=== PATIENT | male | born 1950 | race Caucasian/White ===

== ENCOUNTER 2020-01-22 23:11 | Inpatient (IN) | payer MEDICARE, OTHER ==
[~2020-01-22] VITALS: Ht 190.5 cm; Wt 90.7 kg
[~2020-01-22 23:11] MED LIST: AMLODIPINE BESY10 MG PO; ASA81 MG PO; ATORVASTATIN CA10 MG PO; GLIPIZIDE5 MG PO; HYDROCHLOROTHIA25 MG PO; IBUPROFEN PO; LISINOPRIL10 MG PO; MELOXICAM7.5 MG PO; METFORMIN HCL500 MG PO; NORCO 10-325 T1 EACH PO; Z SULFAMETHOXAZO PO; Z.0.PENICILLIN V P50 PO; [UNRECOGNIZED DRUG - OTHER] PO
[2020-01-23] MEDS ORDERED: ACETAMINOPHEN 325 MG TAB PO ONE (00:30)
[2020-01-23] MEDS ORDERED: ONDANSETRON HCL INJ 2MG/ML 2ML 2 MG/ML VIAL IV PRN (00:30)
[2020-01-23] MEDS ORDERED: VANCOMYCIN 1GM/NS 250 ML 250 ML IV SCH (00:30)
[2020-01-23] MEDS ORDERED: PIPER-TAZ 3.375 GM 50 ML IV ONE (00:30)
[2020-01-23] MEDS ORDERED: ACETAMINOPHEN 325 MG TAB PO PRN (00:30)
[2020-01-23] MEDS ORDERED: VANCOMYCIN 1GM/NS 250 ML 250 ML IV ONE (00:30)
[2020-01-23] MEDS ORDERED: SODIUM CHLORIDE 0.9% 1000ML 1,000 ML IV ONE (00:30)
--- NOTE | 2020-01-23 00:33 | Emergency Department Note ---
History of Present Illnes History of Present Illness Chief Complaint: Extremity Trauma/Pain History of Present Illness This is a 69 year old male PRESENT WITH C/O INFECTION TO LEFT ANKLE WITH OPEN WOUND, WOUND TIMES ONE MONTH, REDNESS, DRAINAGE STARTED 2 DAYS AGO. Historian: Patient Arrival Mode: Car Onset (how long ago): day(s) (2) Location: LEFT ANKLE Quality: INFECTION Radiation: Reports non-radiation Severity: moderate Onset quality: gradual Duration (how long): day(s) (2) Timing of current episode: constant Progression: worsening Context: Denies recent illness, Denies recent surgery Relieving factors: none Exacerbating factors: none Associated symptoms: Reports denies other symptoms Treatments prior to arrival: none Past Medical/Family History Physician Review I have reviewed the patient's past medical and family history. Any updates have been documented here. Past Medical History Recent Fever: No Clinical Suspicion of Infectio: No New/Unexplained Change in Ment: No Past Medical History: Hypertension, Diabetes Other Medical History: High cholesterol Other Surgery: LEFT ANKLE SURGERY Social History Smoking Cessation: Never Smoker Alcohol Use: None Any Illegal Drug Use: No Family History Family history of heart diseas: No Other family history HTN, DM Other Last Tetanus: UNKNOWN Review of Systems Review of Systems Constitutional: Reports no symptoms EENTM: Reports no symptoms Cardiovascular: Reports no symptoms Respiratory: Reports no symptoms Gastrointestinal: Reports no symptoms Genitourinary: Reports no symptoms Musculoskeletal: Reports no symptoms Integumentary: Reports as per HPI Neurological: Reports no symptoms Psychological: Reports no symptoms Endocrine: Reports no symptoms Hematological/Lymphatic: Reports no symptoms Physical Exam Related Data Allergies: Coded Allergies: No Known Allergies (Unverified , 12/13/16) Triage Vital Signs Vital Signs Date Time Temp Pulse Resp B/P (MAP) Pulse Ox O2 Delivery O2 Flow Rate FiO2 01/23/20 00:13 100.2 86 18 163/75 97 Room Air Vital signs reviewed: Yes Physical Exam CONSTITUTIONAL Constitutional: Present well-developed, Present well-nourished HENT HENT: Present normocephalic, Present atraumatic, Present oropharynx clear/moist, Present nose normal HENT L/R: Present left ext ear normal, Present right ext ear normal EYES Eyes: Reports PERRL, Reports conjunctivae normal NECK Neck: Present ROM normal PULMONARY Pulmonary: Present effort normal, Present breath sounds normal CARDIOVASCULAR Cardiovascular: Present regular rhythm, Present heart sounds normal, Present capillary refill normal, Present normal rate GASTROINTESTINAL Abdominal: Present soft, Present nontender, Present bowel sounds normal GENITOURINARY Genitourinary: Present exam deferred SKIN Skin: Present warm, Present dry MUSCULOSKELETAL PT WITH 4 BY 2 CM WOUND TO LATERAL ASPECT OF LEFT ANKLE WITH DRAINAGE, THERE IS A 15 CM SURROUNDING AREA OF ERYTHEMA AND SWELLING, NEUROLOGICAL Neurological: Present alert, Present oriented x 3, Present no gross motor or sensory deficits PSYCHOLOGICAL Psychological: Present mood/affect normal, Present judgement normal Results Laboratory Laboratory Laboratory Tests Test 01/23/20 01:15 01/23/20 00:24 01/23/20 00:20 Bedside Glucose 208 mg/dL (70-120) White Blood Count 14.53 x10e3/uL (4.8-10.8) Red Blood Count 4.15 x10e6/uL (4.3-5.7) Hemoglobin 12.7 g/dL (14.0-18.0) Hematocrit 38.4 % (38.2-49.6) Mean Corpuscular Volume 92.5 fL (81-99) Mean Corpuscular Hemoglobin 30.6 pg (28-32) Mean Corpuscular Hemoglobin Concent 33.1 g/dL (31-35) Red Cell Distribution Width 13.6 % (11.7-14.4) Platelet Count 204 x10e3/uL (140-360) Neutrophils (%) (Auto) 77.9 % (38.7-80.0) Lymphocytes (%) (Auto) 11.0 % (18.0-39.1) Monocytes (%) (Auto) 9.4 % (4.4-11.3) Eosinophils (%) (Auto) 0.7 % (0.0-6.0) Basophils (%) (Auto) 0.4 % (0.0-1.0) Neutrophils # (Auto) 11.3 (2.1-6.9) Lymphocytes # (Auto) 1.6 (1.0-3.2) Monocytes # (Auto) 1.4 (0.2-0.8) Eosinophils # (Auto) 0.1 (0.0-0.4) Basophils # (Auto) 0.1 (0.0-0.1) Absolute Immature Granulocyte (auto 0.09 x10e3/uL (0-0.1) Sodium Level 133 mmol/L (136-145) Potassium Level 4.0 mmol/L (3.5-5.1) Chloride Level 99 mmol/L (98-107) Carbon Dioxide Level 25 mmol/L (22-29) Anion Gap 13.0 mmol/L (8-16) Blood Urea Nitrogen 27 mg/dL (7-26) Creatinine 2.07 mg/dL (0.72-1.25) Estimat Glomerular Filtration Rate 32 ML/MIN (60-) BUN/Creatinine Ratio 13 (6-25) Glucose Level 212 mg/dL (74-118) Calcium Level 9.7 mg/dL (8.4-10.2) Total Bilirubin 1.2 mg/dL (0.2-1.2) Aspartate Amino Transf (AST/SGOT) 34 IU/L (5-34) Alanine Aminotransferase (ALT/SGPT) 27 IU/L (0-55) Alkaline Phosphatase 78 IU/L (40-150) Total Protein 8.8 g/dL (6.5-8.1) Albumin 3.8 g/dL (3.5-5.0) Globulin 5.0 g/dL (2.3-3.5) Albumin/Globulin Ratio 0.8 (0.8-2.0) Lab results reviewed: Yes Assessment & Plan Medical Decision Making MDM PT WITH INFECTED DIABETIC WOUND TO LEFT ANKLE AND SURROUNDING CELLULITS CBC, CMP, BLOOD CULTURE ORDERED ZOSYN 3.375 GRAMS IV ORDERED VANCOMYCIN 1 GRAM IV ORDERED TYLENOL 650 MG PO ORDERED I SPOKE WITH DR GALDAMEZ ADMIT TO INPATIENT Assessment & Plan Final Impression: (1) Cellulitis of left ankle (2) Wound of left ankle Depart Disposition: ADMITTED Last Vital Signs Date Time Temp Pulse Resp B/P (MAP) Pulse Ox O2 Delivery O2 Flow Rate FiO2 01/23/20 00:13 100.2 86 18 163/75 97 Room Air Home Meds Reported Medications Hydrocodone Bit/Acetaminophen (NORCO 10-325 TABLET) 1 Each Tablet, 1 TAB PO Q6H PRN for PAIN 12/20/16 Meloxicam (MELOXICAM) 7.5 Mg Tablet, 7.5 MG PO DAILY, #30 TAB 12/13/16 Atorvastatin Calcium (ATORVASTATIN CALCIUM) 10 Mg Tablet, 10 MG PO 2100, #30 TAB 6/1/17 Amlodipine Besylate (AMLODIPINE BESYLATE) 10 Mg Tablet, 10 MG PO DAILY, #30 TAB 12/13/16 Hydrochlorothiazide (HYDROCHLOROTHIAZIDE) 25 Mg Tablet, 12.5 MG PO BID, #30 TAB 12/13/16 Lisinopril (LISINOPRIL) 10 Mg Tablet, 40 MG PO BID, #30 TAB 12/13/16 Glipizide (GLIPIZIDE) 5 Mg Tablet, 5 MG PO BID, TAB 12/13/16 Metformin Hcl (METFORMIN HCL) 500 Mg Tablet, 1000 MG PO BID, #60 TAB 12/13/16 Penicillin V Potassium (Penicillin V Potassium) 500 Mg Tablet, 500 MG PO ACHS 10/02/11 Ibuprofen (Ibuprofen) 100 Mg Tablet, 100 MG PO DAILY 10/02/11 Multivitamins (Multivitamins) 1 Each Tab.chew, 1 EACH PO DAILY 10/02/11 Aspirin (Asa) 81 Mg Tab, 81 MG PO DAILY 10/02/11 Medications in the ED Piperacillin Sod/ Tazobactam Sod 50 ml @ 50 mls/hr NOW ONCE IV ; Start 01/23/20 at 00:30; Stop 01/23/20 at 01:29 Vancomycin HCl 250 ml @ 200 mls/hr NOW ONCE IV ; Start 01/23/20 at 00:30; Stop 01/23/20 at 01:44 Acetaminophen 650 mg ONCE ONCE PO ; Start 01/23/20 at 00:30; Stop 01/23/20 at 00:31 MARTIN ZUNIGA MD Jan 23, 2020 00:33
[2020-01-23 01:20] LABS: ALBUMIN 3.8 g/dL (3.5-5.0); ALBUMIN/GLOBULIN RATIO 0.8 (0.8-2.0); CALCIUM 9.7 mg/dL (8.4-10.2); CREATININE, SERUM 2.07 mg/dL (0.72-1.25)
[2020-01-23 01:21] LABS: BASOPHILS # (AUTO) 0.1 (0.0-0.1); BASOPHILS % 0.4 % (0.0-1.0); EOSINOPHILS # (AUTO) 0.1 (0.0-0.4); EOSINOPHILS % 0.7 % (0.0-6.0); HEMATOCRIT 38.4 % (38.2-49.6); HEMOGLOBIN 12.7 g/dL (14.0-18.0); LYMPHOCYTES # (AUTO) 1.6 (1.0-3.2); MEAN CORPUSCULAR HEMOGLOBIN 30.6 pg (28-32); MEAN CORPUSCULAR HGB CONC 33.1 g/dL (31-35); MEAN CORPUSCULAR VOLUME 92.5 fL (81-99); MONOCYTES # (AUTO) 1.4 (0.2-0.8); MONOCYTES % 9.4 % (4.4-11.3); NEUTROPHILS # (AUTO) 11.3 (2.1-6.9); NEUTROPHILS % 77.9 % (38.7-80.0); PLATELET COUNT 204 x10e3/uL (140-360); RED BLOOD COUNT 4.15 x10e6/uL (4.3-5.7); RED CELL DISTRIBUTION WIDTH 13.6 % (11.7-14.4)
[2020-01-23] MEDS: VANCOMYCIN 500MG/NS 0.9% 100ML 100 ML IV SCH ×2 (02:08→12:02)
[2020-01-23] MEDS ORDERED: PIPERACILLIN/TAZO 2.25 GM 50 ML IV SCH (06:00)
[2020-01-23] MEDS ORDERED: PIPER-TAZ 3.375 GM 50 ML IV SCH (06:00)
[2020-01-23] MEDS ORDERED: INSULIN REGULAR, HUMAN 100 UNIT/1 ML 3ML VIAL SQ SCH (07:30)
[2020-01-23] MEDS: PIPERACILLIN/TAZO 2.25 GM 50 ML IV SCH ×2 (07:57→12:03)
[2020-01-23] MEDS ORDERED: HYDROCODONE/APAP 10MG-325MG TAB PO PRN (11:15)
[2020-01-23] MEDS ORDERED: DEXTROSE 50% SYRINGE 50 ML IV PRN (11:15)
[2020-01-23] MEDS: INSULIN LISPRO 100 UNIT/1 ML 3ML VIAL SQ SCH ×3 (11:32→21:00)
--- NOTE | 2020-01-23 11:34 | NUR ---
HYDROCHLORZIDE/METFORMIN 1000MG TABLETS TAKES 1500MG AT MORNING AND 1000MG EVENING GLIPZIDE 5MG TABLETS TAKES 2.5MG ON PO DAILY LISINOPRIL 40MG ONE PO BID ATORVOSTATIN 40MG ONE PO HS LATANOPROST DROPS ONE EACH EYE HS
[2020-01-23] MEDS ORDERED: METFORMIN PO (11:43)
[2020-01-23] MEDS ORDERED: HYDROCHL PO (11:43)
[2020-01-23] MEDS: GLIPIZIDE 5 MG TAB PO SCH ×2 (11:54→16:00)
[2020-01-23] MEDS: AMLODIPINE BESYLATE 10 MG TAB PO SCH (11:54)
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
--- NOTE | 2020-01-23 14:40 | NUR ---
after collecting wound culture from left ankle wound, wound cleansed then wet to dry dressing applied to left ankle.
--- NOTE | 2020-01-23 15:04 | NUR ---
consult [id number]
[2020-01-23] MEDS ORDERED: CEFEPIME HCL 1 GM VIAL IV SCH (15:15)
[2020-01-23 15:44] VITALS: BP 159/63
[2020-01-23] MEDS: CEFEPIME 1GM/NS 0.9% 50 ML 50 ML IV SCH (17:02)
[2020-01-23] MEDS ORDERED: SODIUM CHLORIDE 0.9% 250ML 250 ML ONE (17:04)
[2020-01-23] MEDS: ENOXAPARIN SOD INJ 40 MG/0.4 ML SYR SC SCH (17:15)
--- NOTE | 2020-01-23 17:15 | Consultation ---
DATE OF CONSULTATION: HISTORY OF PRESENT ILLNESS: Mr. Heart is a very pleasant 69-year-old, who comes in with redness and swelling, infection of his left ankle with wound started few days ago. The patient who apparently had surgery on his ankle with hardware placement done a few years ago. No specific trauma. He does not remember wearing any tight shoes or any things like that. The patient has come in and he is admitted with swelling and there is open wound. The patient was noted to have elevated kidney function. He does have history of diabetes mellitus, history of infection of his elbow before. REVIEW OF SYSTEMS: Otherwise unremarkable. PHYSICAL EXAMINATION: GENERAL: Currently alert, oriented. VITAL SIGNS: Stable. Currently afebrile. HEENT: Not icteric. NECK: Supple. CHEST: Clear. HEART: S1, S2. No murmur. ABDOMEN: Soft. EXTREMITIES: Ankle has redness and swelling noted. IMPRESSION: 1. Infection of his ankle of open ulcer, concerned about infected hardware. 2. Chronic kidney disease. 3. Diabetes mellitus. RECOMMENDATIONS: Ortho evaluation to see if we can remove the hardware. Obtain x-ray. We may need MRI without contrast. We will see the x-ray. Obtain sedimentation rate and C-reactive protein. We will put him on Zyvox and cefepime at renal dose. Further recommendations to follow. MD SULAIMAN Torres/KAREN /[id number]
[2020-01-23 17:48] VITALS: BP 159/63
[2020-01-23] MEDS: LINEZOLID 600 MG/D5W 300ML 300 ML IV SCH (18:20)
[2020-01-23 20:53] VITALS: BP 141/79
--- NOTE | 2020-01-23 20:54 | NUR ---
RECEIVED PT IN BED AOX3 ,,BRISA PAIN .LEFT ANKLE WITH DRESSING RT FOOT SMALL WOUND ,LEFT AC 20 G S/L .CALL LIGHT WITH IN REACH ,CONTINUE TO MONITOR
[2020-01-23] MEDS: INSULIN GLARGINE 100 UNITS/ML VIAL SQ SCH (21:00)
[2020-01-23 21:14] VITALS: BP 141/79
[2020-01-23] MEDS: ATORVASTATIN 10 MG TAB PO SCH (21:45)
[2020-01-24] VITALS (8 sets, daily range): BP systolic 137–162; BP diastolic 61–81
[2020-01-24] MEDS: CEFEPIME 1GM/NS 0.9% 50 ML 50 ML IV SCH ×2 (04:00→16:56)
[2020-01-24] MEDS: LINEZOLID 600 MG/D5W 300ML 300 ML IV SCH ×2 (04:30→18:21)
--- NOTE | 2020-01-24 05:12 | NUR ---
PT RESTED DURING THE NIGHT ,DENIES PAIN ,CALL LIGHT WITH IN REACH CONTINUE TO MONITOR
--- NOTE | 2020-01-24 05:17 | NUR ---
PT RESTED DURING THE NIGHT ,DENIES PAIN NO ACUTE DISTRESS NOTED CALL LIGHT WITH IN REACH CONTINUE TO MONITOR
[2020-01-24 05:42] LABS: BASOPHILS # (AUTO) 0.1 (0.0-0.1); BASOPHILS % 0.5 % (0.0-1.0); EOSINOPHILS # (AUTO) 0.4 (0.0-0.4); EOSINOPHILS % 3.5 % (0.0-6.0); HEMATOCRIT 31.8 % (38.2-49.6); HEMOGLOBIN 10.5 g/dL (14.0-18.0); LYMPHOCYTES # (AUTO) 1.5 (1.0-3.2); LYMPHOCYTES % 14.7 % (18.0-39.1); MEAN CORPUSCULAR HEMOGLOBIN 30.3 pg (28-32); MEAN CORPUSCULAR VOLUME 91.9 fL (81-99); MONOCYTES # (AUTO) 1.1 (0.2-0.8); MONOCYTES % 10.7 % (4.4-11.3); NEUTROPHILS % 70.1 % (38.7-80.0); PLATELET COUNT 178 x10e3/uL (140-360); RED BLOOD COUNT 3.46 x10e6/uL (4.3-5.7); RED CELL DISTRIBUTION WIDTH 13.6 % (11.7-14.4)
[2020-01-24 06:26] LABS: ANION GAP 11.7 mmol/L (8-16); CALCIUM 8.2 mg/dL (8.4-10.2); CREATININE, SERUM 1.24 mg/dL (0.72-1.25); POTASSIUM 3.7 mmol/L (3.5-5.1)
--- NOTE | 2020-01-24 07:02 | NUR ---
BEDSIDE REPORT GIVEN TO THE ONCOMING NURSE
--- NOTE | 2020-01-24 07:25 | Diagnostic Imaging Report ---
EXAM: MRI OF THE RIGHT ANKLE WITHOUT CONTRAST INDICATION: Infection of the lateral side of ankle COMPARISON: None. TECHNIQUE: Multiplanar, multisequence imaging of the right ankle was performed without contrast using departmental protocol. DISCUSSION: Bones and bone marrow: Intact plate and screw fixation hardware along the lateral aspect of the distal fibula and lateral malleolus. Preserved fatty marrow signal within the distal fibula. Screw tracks through the distal tibia and calcaneal body Joints: Degenerative changes. No dislocations. Ligament: Torn scarred and thickened tibiofibular talofibular calcaneofibular ligaments. Thickened/scarring deltoid ligament. Tendons: The Achilles tendon, anterior compartment tendons, and lateral and medial compartment tendons are normal. Sinus tarsi: The sinus tarsi is normal in appearance. Soft tissues: Subcutaneous edema about the ankle and foot. The visualized vessels are normal in appearance. IMPRESSION: Subcutaneous edema about the ankle and foot consistent with cellulitis. Low suspicion for osteomyelitis. Signed by: Billy Hernandez DO on 01/24/2020 7:22 AM
[2020-01-24] MEDS: INSULIN LISPRO 100 UNIT/1 ML 3ML VIAL SQ SCH ×4 (07:30→21:30)
[2020-01-24] MEDS: GLIPIZIDE 5 MG TAB PO SCH ×2 (07:30→16:30)
[2020-01-24] MEDS: ASPIRIN 81 MG ENTERIC COATED PO SCH (09:00)
[2020-01-24] MEDS: AMLODIPINE BESYLATE 10 MG TAB PO SCH (09:00)
--- NOTE | 2020-01-24 10:28 | History and Physical ---
PRIMARY CARE PHYSICIAN: Dr. Naomi De La Torre. CONSULTANTS: 1. Dr. Chapa. 2. Dr. Dewayne Colvin. CHIEF COMPLAINT: Left ankle infection. HISTORY OF PRESENT ILLNESS: The patient is a 69-year-old male with left ankle swelling infected open wound, started approximately one week ago. Symptoms worsened, which brought the patient to the emergency room. The patient apparently had surgery on his left ankle with hardware placement done years ago. He also had a redo previously as well. He was fine until recently. The patient does have diabetes type 2, on home medication. He has no chest pain or shortness of breath. No lower extremity pain except for the left ankle. The patient is otherwise stable. PAST MEDICAL HISTORY: Diabetes type 2, hypertension, and dyslipidemia. PAST SURGICAL HISTORY: Left ankle surgery. SOCIAL HISTORY: The patient does not smoke or use alcohol. No regular drugs. ALLERGIES: NO KNOWN ALLERGIES. HOME MEDICATIONS: The patient is on, 1. Atorvastatin. 2. Glipizide. 3. Lisinopril. 4. Metformin. PHYSICAL EXAMINATION: VITAL SIGNS: Temperature is 98, blood pressure 137/66, pulse rate 69, and respirations 18. GENERAL: The patient is not in acute distress. He is awake. HEENT: Normocephalic and atraumatic. He is anicteric. NECK: Supple grossly. PULMONARY: Clear. CARDIOVASCULAR: Regular rate and rhythm. ABDOMEN: Soft, unremarkable. EXTREMITIES: Left ankle open wound infection of the lateral malleolar area. No calf pain. NEUROLOGIC: No focal deficit. IMAGING DATA: MRI of the ankle shows subcutaneous edema about the ankle in the foot consistent with cellulitis. Low suspicion for osteomyelitis. LABORATORY DATA: WBC 14.5, hemoglobin 12.7, hematocrit 38, and platelets 204. Chemistry; sodium 139, potassium 3.7, chloride 107, bicarb 24, BUN 20, creatinine 1.2, and glucose is 71. IMPRESSION: 1. Left ankle is developing abscess, infection, cellulitis associated with diabetic left ankle ulcer. 2. Diabetes type 2, on oral hypoglycemic medication, A1c 7.3, well controlled. PLAN: Continue with antibiotics. Surgical consultation. Infectious Disease. Culture of the wound. Insulin sliding scale coverage. Monitor the patient closely. Repeat the lab work. MD ERNESTO Haskins/KAREN /[id number]
--- NOTE | 2020-01-24 14:42 | NUR ---
dressing changed to left ankle. new wet to dry dressing applied.
--- NOTE | 2020-01-24 16:57 | NUR ---
patient taking own oral home medications. Dr. Arndt aware and gave okay.
[2020-01-24] MEDS: ENOXAPARIN SOD INJ 40 MG/0.4 ML SYR SC SCH (17:00)
[2020-01-24] MEDS: ATORVASTATIN 10 MG TAB PO SCH (21:00)
[2020-01-24] MEDS: INSULIN GLARGINE 100 UNITS/ML VIAL SQ SCH (21:30)
[2020-01-24] MEDS: HYDRALAZINE HCL 25 MG TAB PO PRN (21:31)
[2020-01-25] VITALS (8 sets, daily range): BP systolic 126–166; BP diastolic 65–88
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
[2020-01-25] MEDS: CEFEPIME 1GM/NS 0.9% 50 ML 50 ML IV SCH (04:20)
[2020-01-25] MEDS: LINEZOLID 600 MG/D5W 300ML 300 ML IV SCH (05:21)
[2020-01-25] MEDS: INSULIN LISPRO 100 UNIT/1 ML 3ML VIAL SQ SCH ×4 (07:30→21:29)
--- NOTE | 2020-01-25 10:32 | Diagnostic Imaging Report ---
EXAMINATION: ANKLE 3+ VIEWS LEFT INDICATION: Left ankle infection COMPARISON: None FINDINGS: AP, lateral and oblique radiographs of the left ankle demonstrate postoperative findings of prior ORIF of the left distal fibula with plate and screw construct. No acute fracture or dislocation. Alignment is near-anatomic. Hardware is intact without evidence of complication. Soft tissue swelling overlying the lateral malleolus. No definite radiographic evidence of osteomyelitis. No substantial ankle joint effusion. Scattered atherosclerotic arterial calcifications. Plantar calcaneal spur. IMPRESSION: Lateral left ankle soft tissue swelling. No underlying acute osseous injury or specific radiographic evidence of osteomyelitis. Postoperative findings of distal fibular ORIF without radiographic evidence of hardware complication. Signed by: Karri Shetty MD on 01/25/2020 10:29 AM
--- NOTE | 2020-01-25 10:37 | NUR ---
WOUND CARE CONSULTATION. 69 YEAR OLD MALE ADMITTED TO [facility] WITH DX OF CELLULITIS AND WOUND TO LEFT ANKLE. HEAD TO TOE SKIN ASSESSMENT PERFORMED TODAY. PT PRESENTS WITH 0.8X0.8X1 CM WOUND TO LEFT LATERAL ANKLE. 100% SLOUGH. MODERATE PURULENT DRAINAGE PRESENT. 1.5CM UNDERMINING FROM 12-12. PT ALSO PRESENTS WITH 1.5X1.2X0.1CM DRY AND STABLE ESCHAR. CELLULITIS PRESENT TO PERIWOUND. DR. CEDILLO ON THE CASE ASSESSED PT AND ORDERED BACTROBAN DAILY. THERE ARE NO OTHER AREAS OF CONCERN NOTED AT THIS TIME. LABS: WBC: 10.01 ESR: 75 GLUCOSE: 272 HGB A1C: 7.3 ALB: 3.8 WOUND CX + FOR [facility]. MEDS: LINEZOLID & CEFEPIME IV THANKS FOR THIS CONSULTATION. Addendum: 01/25/20 at 1650 by Ana Mesa RN Amended: Links added.
[2020-01-25] MEDS: AMLODIPINE BESYLATE 10 MG TAB PO SCH (11:03)
[2020-01-25] MEDS: ASPIRIN 81 MG ENTERIC COATED PO SCH (11:03)
[2020-01-25] MEDS: GLIPIZIDE 5 MG TAB PO SCH ×2 (11:04→17:37)
[2020-01-25] MEDS: VANCOMYCIN 1GM/NS 250 ML 250 ML IV SCH ×2 (11:18→21:30)
[2020-01-25] MEDS: MUPIROCIN 2% OINT 22 GM TUBE TOP SCH ×2 (11:19→17:28)
[2020-01-25] MEDS: ENOXAPARIN SOD INJ 40 MG/0.4 ML SYR SC SCH (17:37)
[2020-01-25] MEDS ORDERED: FUROSEMIDE INJ 10 MG/ML 2 ML VIAL IV PRN (19:30)
--- NOTE | 2020-01-25 19:55 | NUR ---
RECEIVED REPORT FROM PREVIOUS NURSE. CALL LIGHT WITHIN REACH. PATIENT IN BED. ROUNDING PERFORMED.
--- NOTE | 2020-01-25 20:19 | Diagnostic Imaging Report ---
X-ray of the right foot HISTORY: Pain. COMPARISON: None available. FINDINGS: Bones/joints: No acute fracture or dislocation. There are severe degenerative changes at the first metatarsophalangeal joint characterized by joint space narrowing, subchondral sclerosis, subchondral cystic changes and marginal osteophytes. There is an os peroneum and a prominent calcaneal spur. Soft tissues:The soft tissues appear unremarkable. IMPRESSION: 1. No acute fracture or dislocation. 2. Severe osteoarthritis of the first metatarsophalangeal joint. Signed by: Christina Woodard MD on 01/25/2020 8:15 PM
--- NOTE | 2020-01-25 20:40 | Consultation ---
DATE OF CONSULTATION: 01/25/2020 SUBJECTIVE: The patient is at bedside. Denies any history of fever, chills, nausea, or vomiting. OBJECTIVE: VITAL SIGNS: Afebrile, pulse rate 67, respirations 18, blood pressure 156/68, and O2 saturation 98%. LABORATORY DATA: Labs show white blood cell count dropping from 14.5 to 10.0. Has an ulceration on lateral aspect left talotibial joint measuring 1-1.5 cm in diameter. Some drainage noted and periwound cellulitis of approximately 5-6 inches dorsal to the open area getting better since he has been on IV antibiotics, has an ulceration plantar aspect right great toe. The right great toe is very swollen when compared to contralateral side. Ulcers approximately 2 cm in diameter. Some black eschar noted. MRIs of the left ankle were negative for any type of osteomyelitic changes. ASSESSMENT: Grade 2/3 ulcerations bilaterally with cellulitis. PLAN: X-rays of the right foot, three views were ordered. We will continue diluted wet-to-dry Betadine and Bactroban ointment to the left ankle. We will start diluted wet-to-dry Betadine and back filling to the right great toe. Ulcerations will be debrided sometime tomorrow. Continue IV antibiotics. MAEGAN Overton/KAREN /[id number]
[2020-01-25] MEDS: ATORVASTATIN 10 MG TAB PO SCH (21:29)
[2020-01-25] MEDS: INSULIN GLARGINE 100 UNITS/ML VIAL SQ SCH (21:29)
[2020-01-25] MEDS: HYDRALAZINE HCL 25 MG TAB PO PRN (21:41)
[2020-01-26] VITALS (8 sets, daily range): BP systolic 139–169; BP diastolic 66–82
--- NOTE | 2020-01-26 06:31 | NUR ---
CALLED AND TALKED TO DR. GALDAMEZ ABOUT THE PATIENT HAVING MRSA IN THE LEFT ANKLE AND WILL BE TRANSFERRED TO ROOM 215. DR. GALDAMEZ SAID OKAY.
--- NOTE | 2020-01-26 07:28 | NUR ---
GAVE BEDSIDE SHIFT REPORT TO ONCOMING NURSE. CALL LIGHT WITHIN REACH. PATIENT IN BED. HOURLY ROUNDING PERFORMED.
--- NOTE | 2020-01-26 07:29 | NUR ---
RECEIVED REPORT FROM PM NURSE. INFORMED PT'S BLOOD SUGAR DROPPED TO 50'S AFTER RECEIVING INSULIN LAST NIGHT. WILL HOLD MORNING DOSE.
[2020-01-26] MEDS: INSULIN LISPRO 100 UNIT/1 ML 3ML VIAL SQ SCH ×4 (07:30→21:00)
--- NOTE | 2020-01-26 07:46 | NUR ---
TRANSFER OF CARE REPORT GIVEN TO JIM TEE. PT WILL BE TRANSFERRED TO ROOM 215.
[2020-01-26] MEDS: ASPIRIN 81 MG ENTERIC COATED PO SCH (08:17)
[2020-01-26] MEDS: GLIPIZIDE 5 MG TAB PO SCH ×2 (08:17→18:11)
[2020-01-26] MEDS: AMLODIPINE BESYLATE 10 MG TAB PO SCH (08:17)
--- NOTE | 2020-01-26 08:25 | NUR ---
PT TRANSPORTED TO ROOM 215. IN STABLE CONDITION.
[2020-01-26] MEDS: MUPIROCIN 2% OINT 22 GM TUBE TOP SCH ×2 (09:00→17:00)
--- NOTE | 2020-01-26 09:27 | Progress Note ---
DATE: 01/26/2020 SUBJECTIVE: The patient at bedside, doing better. Denies any history of fever, chills, nausea, or vomiting. OBJECTIVE: VITAL SIGNS: Afebrile. Pulse rate 70, respirations 18, blood pressure 164/82, O2 saturation 100%. LABORATORY DATA: Labs show white blood cell count of 10.01. Has an ulceration in the lateral aspect of the left talotibial joint, 1.5 cm in diameter, tracking down to bone with periwound cellulitis present approximately 5 inches around the ulceration. Has a grade 2 ulcer plantar aspect of the right great toe down to subcutaneous tissue. X-rays were negative for any type of gas in the tissue to the right foot. He does have severe osteoarthritis of the 1st metatarsophalangeal joint with limitation of range of motion. Pedal pulses are palpable. ASSESSMENT: Grade 3 ulcer, left foot, grade 2 ulcer right. PLAN: Sharp excisional debridement of the ulcers to both lower extremities were taken down to close to bone on the left lower extremity and down to subcutaneous tissue via sharp excisional debridement and good viable bleeding tissue was achieved. Deep cultures were taken of the left ankle for aerobic and anaerobic growth. We will continue to treat conservatively with Bactroban ointment followed by diluted wet-to-dry Betadine. Continue IV antibiotics such as vancomycin. The patient is growing MRSA. We will continue to treat conservatively for now. MAEGAN Overton/KAREN /[id number]
--- NOTE | 2020-01-26 10:38 | Consultation ---
DATE OF CONSULTATION: 01/25/2020 CHIEF COMPLAINT: Left ankle infection. HISTORY OF PRESENT ILLNESS: The patient is a 69-year-old gentleman with diabetes. He sustained an open fracture of his left ankle approximately 7 years ago. This occurred in [place]. He returned to the [facility] and this fracture went on to a nonunion or with loose hardware. The fixation was revised in roughly 2013. He states he was doing fine up until about 5 days prior to admission. He noted some redness and pain in the left ankle. He came to the emergency room was and was noted to have an elevated white blood cell count and notable erythema around his lateral left ankle. Orthopedic consultation was requested. PAST MEDICAL HISTORY: Adult-onset diabetes, hypertension, hyperlipidemia. PREVIOUS SURGERIES: ORIF of left ankle x2. MEDICATIONS: See medication reconciliation list. ALLERGIES: NONE. SOCIAL HISTORY: The patient states he does not smoke or drink. He is retired. PHYSICAL EXAMINATION: GENERAL: He is awake and alert and oriented. He is in no acute distress. EXTREMITIES: Gross inspection of his left ankle reveals notable swelling and erythema over the lateral aspect. There is a superficial ulceration just anterior to the lateral malleolus. He has decreased range of motion in the ankle. He has subjective diminished sensation in the foot. He has a slightly delayed capillary refill. LABORATORY STUDIES: X-rays show a lateral plate fixation of a distal fibula fracture. There is no obvious infection or destruction of the bone. The old fracture appears to be well healed. There are some mild posttraumatic arthritic changes of the tibiotalar joint. An MRI was also reviewed. This does not show any obvious involvement of the distal fibular bone. IMPRESSION: Wound infection/retained hardware, left ankle. The findings were discussed with the patient. We have recommended irrigation and debridement with hardware removal. The risks and benefits were explained. Particular attention was addressed to the difficulty of wound healing in someone with diminished sensation and long-standing diabetes. He also has been treated for an open wound in his right great toe. He understands the natural history of diabetes and the ultimate potential for wound infections to cause partial amputations. All of his questions have been answered. He is already receiving IV antibiotics. We will schedule him for surgical intervention as soon as possible. Thank you for the consultation. Bk Falk MD DR/KAREN /[id number]
[2020-01-26] MEDS ORDERED: SODIUM CHLORIDE 0.9% 250ML 250 ML ONE (17:57)
[2020-01-26] MEDS: VANCOMYCIN 1GM/NS 250 ML 250 ML IV SCH (18:11)
[2020-01-26] MEDS: ENOXAPARIN SOD INJ 40 MG/0.4 ML SYR SC SCH (18:11)
--- NOTE | 2020-01-26 19:20 | NUR ---
report given to oncoming nurse walking rounds complete.
--- NOTE | 2020-01-26 19:25 | NUR ---
Patient received sitting up in bed. AAO x 4. Patient had no complaints of pain. Respirations even and non-labored. Safety measures in place. Patient instructed to call for assistance when needed. Call light within reach.
[2020-01-26] MEDS: INSULIN GLARGINE 100 UNITS/ML VIAL SQ SCH (21:00)
[2020-01-26] MEDS: ATORVASTATIN 10 MG TAB PO SCH (21:15)
[2020-01-27] VITALS: BP 153/75
[2020-01-27 04:00] VITALS: BP 128/72
[2020-01-27] MEDS ORDERED: CEFAZOLIN SOD 1 GM/NS 50ML 50 ML IV ONE (06:30)
[2020-01-27] MEDS: DEXTROSE 50% SYRINGE 50 ML IV PRN (06:53)
[2020-01-27] MEDS ORDERED: BACITRACIN 50,000 UNIT VIAL ONE (06:57)
[2020-01-27] MEDS: VANCOMYCIN 1GM/NS 250 ML 250 ML IV SCH ×3 (07:00→19:45)
--- NOTE | 2020-01-27 07:00 | NUR ---
Patient off floor to OR for surgical procedure.
[2020-01-27] MEDS ORDERED: NEOSTIGMINE 1 MG/ML 10ML VIAL ONE (07:19)
[2020-01-27] MEDS ORDERED: BUPIVACAINE 0.25%/EPI 30ML SDV INJ ONE (07:19)
[2020-01-27] MEDS ORDERED: BUPIVACAINE HCL 0.5% INJ 30 ML VIAL INJ ONE (07:19)
[2020-01-27] MEDS: INSULIN LISPRO 100 UNIT/1 ML 3ML VIAL SQ SCH ×4 (07:30→21:00)
[2020-01-27] MEDS: GLIPIZIDE 5 MG TAB PO SCH ×2 (07:30→17:05)
[2020-01-27] MEDS ORDERED: VANCOMYCIN 1GM/NS 250 ML 250 ML IV SCH (08:15)
[2020-01-27] MEDS: SODIUM CHLORIDE 0.9% 1000ML 1,000 ML IV SCH ×2 (08:15→23:11)
[2020-01-27] MEDS ORDERED: ZOLPIDEM TARTRATE 5 MG TAB PO PRN (08:15)
[2020-01-27] MEDS ORDERED: HYDROCODONE/APAP 5MG-325MG TAB PO PRN (08:15)
[2020-01-27] MEDS ORDERED: ACETAMINOPHEN 650 MG SUPP PR PRN (08:15)
[2020-01-27] MEDS ORDERED: KETOROLAC TROMETHAMINE 30 MG/ML VIAL IV PRN (08:15)
[2020-01-27] MEDS ORDERED: ONDANSETRON HCL INJ 2MG/ML 2ML 2 MG/ML VIAL IV PRN (08:15)
[2020-01-27] MEDS ORDERED: HYDROCODONE/APAP 7.5MG-325MG 1 EA TAB PO PRN (08:15)
[2020-01-27] MEDS ORDERED: DOCUSATE SODIUM 100 MG CAP PO PRN (08:15)
[2020-01-27] MEDS ORDERED: DIPHENHYDRAMINE HCL INJ 50 MG/ML VIAL IV PRN (08:15)
[2020-01-27] MEDS: ASPIRIN 81 MG ENTERIC COATED PO SCH (08:50)
[2020-01-27] MEDS: AMLODIPINE BESYLATE 10 MG TAB PO SCH (08:50)
[2020-01-27] MEDS: MUPIROCIN 2% OINT 22 GM TUBE TOP SCH ×2 (08:51→17:06)
[2020-01-27] MEDS ORDERED: ASPIRIN 325 MG TAB PO SCH (09:00)
[2020-01-27] MEDS ORDERED: CELECOXIB 100 MG CAP PO SCH (09:00)
--- NOTE | 2020-01-27 09:23 | Operative Report ---
DATE OF PROCEDURE: 01/27/2020 SURGEON: Bk Falk MD RECORDS MANAGEMENT TECHNICIAN: Chris Rinaldi, certified PA. PREOPERATIVE DIAGNOSIS: Left ankle infection of retained hardware. POSTOPERATIVE DIAGNOSIS: Left ankle infection of retained hardware. PROCEDURES: Left ankle irrigation and sharp debridement, removal of hardware. INDICATIONS: The patient is a 69-year-old gentleman, who is approximately 7 years status post an open fracture of his left ankle. He has had 2 previous surgeries on this ankle. He has diabetes. Approximately 5 days ago, he developed swelling and redness over the outer aspect of his left ankle. He was admitted with an elevated white count. Orthopedics was consulted. He is noted to have an infection in his left distal fibula without obvious bone involvement. We plan on an irrigation and debridement with hardware removal. The risks and benefits have been discussed. Particular attention has been applied to the challenges of wound healing and diabetes. All of his questions were answered. He states he understands and wishes to proceed. PROCEDURE IN DETAIL: The patient was brought to the operating room and placed under general anesthetic. He was continued on his hospital antibiotics, but Ancef was also added. His left lower extremity was prepped and draped in a sterile manner. A preoperative time-out was performed. The extremity was exsanguinated and a proximal tourniquet was inflated to 300 mmHg. The previous lateral incision was barely perceptible. An incision was made and the hardware was carefully exposed. There was dense scar tissue. Minimal soft tissue dissection was performed. We just wanted to expose the plate. Some bony overgrowth was removed with a small osteotome and a mallet. All of the screws were carefully removed. A small osteotome was used to elevate and remove the plate. All of the areas of concerning tissue were at the tip of the fibula. There was a full-thickness ulceration about 2 cm anterior to the tip of the fibula. The previous screw holes were to be debrided. The infected tissue and the ulceration were sharply excised with a surgical knife. The wound was thoroughly irrigated with a shower tip pulsatile lavage. Cultures were taken. The anterior wound was packed with quarter-inch iodoform gauze. The lateral incision was closed with interrupted nylon stitches. A 10 mL of 0.5% Marcaine without epinephrine was injected around the incision. A sterile bandage was applied. There was no blood loss and all needle and sponge counts were correct. Bk Falk MD DR/KAREN /[id number]
--- NOTE | 2020-01-27 09:30 | NUR ---
Received patient from OR. Left ankle dressing intact. denies pain at this time. Respiration even and unlabored without SOB.
[2020-01-27 09:33] VITALS: BP 168/73
[2020-01-27 11:41] VITALS: BP 156/79
[2020-01-27 16:00] VITALS: BP 166/89
--- NOTE | 2020-01-27 16:57 | NUR ---
patient is sen and examined s/p surgery no complaints ros no new mwd seen labs vs no fever heent neg neck supple chest clear cor S1S2 abdomen soft bs ext no change infcted foot . Infection of his ankle of open ulcer, concerned about infected hardware. 2. Chronic kidney disease. 3. Diabetes mellitus. cont as ordered s/p surgery
--- NOTE | 2020-01-27 16:58 | NUR ---
s/p removal [place] mrsa 4 weeks of vanc
[2020-01-27] MEDS: ASPIRIN 325 MG TAB PO SCH (17:05)
[2020-01-27] MEDS: CELECOXIB 200 MG CAP PO SCH (17:06)
[2020-01-27] MEDS: ENOXAPARIN SOD INJ 40 MG/0.4 ML SYR SC SCH (17:06)
[2020-01-27] MEDS: HYDRALAZINE HCL 25 MG TAB PO PRN (17:14)
[2020-01-27] MEDS ORDERED: ONDANSETRON HCL INJ 2MG/ML 2ML 2 MG/ML VIAL ONE (19:03)
[2020-01-27] MEDS ORDERED: SEVOFLURANE INHAL SOLN 250 ML PEN BTL ONE (19:03)
[2020-01-27] MEDS ORDERED: CEFAZOLIN SOD 1 GM VIAL ONE (19:03)
[2020-01-27] MEDS ORDERED: EPHEDRINE SULFATE INJ 50 MG/ML VIAL ONE ×2 (19:03)
[2020-01-27] MEDS ORDERED: LIDOCAINE HCL 2% LOCAL INJ 5 ML SDV VIAL INJ ONE (19:03)
[2020-01-27] MEDS ORDERED: PROPOFOL IV EMULSION 10 MG/ML 20 ML VIAL ONE (19:03)
[2020-01-27] MEDS ORDERED: KETOROLAC TROMETHAMINE 30 MG/ML VIAL ONE (19:03)
[2020-01-27] MEDS ORDERED: ETOMIDATE 2 MG/ML 10 ML INJ IV ONE (19:03)
--- NOTE | 2020-01-27 19:45 | Consultation ---
DATE OF CONSULTATION: 01/27/2020 SUBJECTIVE: The patient is seen at bedside, doing well, having some discomfort to left lower extremity from the operation. OBJECTIVE: VITAL SIGNS: Afebrile, pulse rate 80, respirations 20, blood pressure 166/89, and O2 saturation 98%. EXTREMITIES: Ulceration to the right great toe is looking better. Granulation tissue noted down the subcutaneous tissue. No bone or tendon exposed. Periwound cellulitis present, measuring 2 to 2.5 cm in diameter. ASSESSMENT: Grade 2 ulcer right foot, status post removal of hardware per Dr. Falk. PLAN: We will continue local wound care to the right foot. Continue offloading. Continue IV antibiotics. We will continue to follow. MAEGAN Overton/KAREN /[id number]
[2020-01-27 20:00] VITALS: BP 146/70
[2020-01-27] MEDS: ATORVASTATIN 10 MG TAB PO SCH (22:27)
[2020-01-27] MEDS: INSULIN GLARGINE 100 UNITS/ML VIAL SQ SCH (22:32)
[2020-01-28] VITALS (8 sets, daily range): BP systolic 142–174; BP diastolic 72–78
[2020-01-28] MEDS: DEXTROSE 50% SYRINGE 50 ML IV PRN (05:30)
--- NOTE | 2020-01-28 06:45 | NUR ---
Patient sugar was 49, dextrose was administered and repeat was 149. Endorsed to next shift for continuity of care and to report MD during rounds.
[2020-01-28] MEDS: INSULIN LISPRO 100 UNIT/1 ML 3ML VIAL SQ SCH ×4 (07:30→21:00)
[2020-01-28] MEDS ORDERED: ACETAMINOPHEN 1000 MG/100 ML IV PRN (08:15)
[2020-01-28] MEDS: SODIUM CHLORIDE 0.9% 1000ML 1,000 ML IV SCH (09:02)
[2020-01-28] MEDS: GLIPIZIDE 5 MG TAB PO SCH ×2 (09:03→17:29)
[2020-01-28] MEDS: VANCOMYCIN 1GM/NS 250 ML 250 ML IV SCH ×2 (09:03→17:29)
[2020-01-28] MEDS: AMLODIPINE BESYLATE 10 MG TAB PO SCH (09:04)
[2020-01-28] MEDS: MUPIROCIN 2% OINT 22 GM TUBE TOP SCH ×2 (09:04→17:01)
[2020-01-28] MEDS: ASPIRIN 325 MG TAB PO SCH ×2 (09:04→17:29)
[2020-01-28] MEDS: CELECOXIB 200 MG CAP PO SCH ×2 (09:04→17:29)
--- NOTE | 2020-01-28 09:09 | NUR ---
Received order for home IV abx. Called and spoke with pt. States he has had IV abx at home previously but cannot remember the name of the company he used. States to use any that takes his insurance. Choice obtained for [facility]. Signed choice letter placed in front of chart. Referral was faxed to [facility] at [phone] / Carmen Herrera with [facility] was notified of referral. Currently pending PICC line placement.
--- NOTE | 2020-01-28 09:42 | Progress Note ---
DATE: SUBJECTIVE: The patient is seen and evaluated. Available labs and notes reviewed. REVIEW OF SYSTEMS: No nausea, vomiting, fever, chills, chest pain, shortness of breath, headache, or rash. PHYSICAL EXAMINATION: VITAL SIGNS: Temperature 97.6, pulse 65, respiration 20, and blood pressure 174/78. GENERAL: Alert and oriented x3. No acute distress. CV: S1 and S2. CHEST: Equal expansion. Clear to auscultation. No acute distress. HEENT: Moist. No pallor. No JVD. EXTREMITIES: Left ankle was dressed with surgical dressing. MEDICATIONS: Reviewed. LABORATORY DATA: No new CBC or BMP available. Coronavirus PCR negative on 01/23/2020. Vancomycin trough was 15.6 on 01/26. MICROBIOLOGY: Wound cultures MRSA. Blood cultures clean. RADIOLOGY STUDIES: No new radiology studies available. ASSESSMENT AND PLAN: 1. Infected left ankle with open wound and drainage. 2. Cellulitis of left ankle. 3. Methicillin-resistant Staphylococcus aureus of the wound. 4. Status post hardware removal Dr. Bk Falk, orthopedic. 5. Re-insert the PICC line inpatient and arrange for 4 weeks of vancomycin IV with labs on a weekly basis. Please refer to chart for more information. Discussed with Dr. Chapa in details. Dictated by Wilver Verdugo PA-C (Al) Devin Chapa MD /ANITAL /[id number]
--- NOTE | 2020-01-28 09:47 | Progress Note ---
DATE: 01/28/2020 SUBJECTIVE: The patient is seen at bedside. He has some discomfort to the left lower extremity. He is denying any history of fever, chills, nausea, or vomiting. Feeling better to the right foot. OBJECTIVE: VITAL SIGNS: Afebrile, pulse rate 65, respirations 20, blood pressure 174/78, and O2 saturation 97%. EXTREMITIES: Ulceration to the right great toe getting better, less than 2.5 cm in diameter. Some necrosis noted down to subcutaneous tissue. Negative drainage. Negative foul smell. Some swelling in right great toe when compared to the left. 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 Falk. PLAN: We will continue local wound care to the right foot. Continue IV antibiotics. Continue offloading. We will continue to follow. MAEGAN Overton/KAREN /[id number]
[2020-01-28] MEDS: LISINOPRIL 20 MG TAB PO SCH (10:30)
[2020-01-28] MEDS: METFORMIN HCL 500 MG TAB CR PO SCH ×2 (10:30→17:29)
[2020-01-28 12:49] LABS: ANION GAP 9.3 mmol/L (8-16); BLOOD UREA NITROGEN 18 mg/dL (7-26); BUN/CREATININE RATIO 16 (6-25); CALCIUM 8.1 mg/dL (8.4-10.2); CARBON DIOXIDE 24 mmol/L (22-29); CHLORIDE 111 mmol/L (98-107); EST GLOMERULAR FILTRATION RATE > 60 ML/MIN (60-); GLUCOSE 82 mg/dL (74-118); POTASSIUM 4.3 mmol/L (3.5-5.1); SODIUM 140 mmol/L (136-145)
--- NOTE | 2020-01-28 13:04 | NUR ---
Spoke with Carmen at [facility]. Pt accepted copay. Nurse will reach out to pt to arrange teach. Still pending PICC line placement.
--- NOTE | 2020-01-28 14:11 | NUR ---
Soheila Kellogg is on her way to hospital to provide bedside teaching to pt.
[2020-01-28] MEDS ORDERED: ONDANSETRON HCL 4 MG ORAL DISINTEGRATING TAB PO PRN (15:30)
--- NOTE | 2020-01-28 16:26 | NUR ---
Bedside teaching has been completed. Still pending PICC line placement. Nursing to faxed PICC confirmation to [facility] at [phone] CM spoke with JIM Haines
--- NOTE | 2020-01-28 19:04 | Diagnostic Imaging Report ---
EXAMINATION: CHEST XRAY LINE PLACEMENT INDICATION: PICC placement. COMPARISON: None FINDINGS: TUBES and LINES: There is a right PICC which terminates in the mid superior vena cava. LUNGS/PLEURA: No focal consolidation, pleural effusion or pneumothorax. HEART AND MEDIASTINUM: The cardiomediastinal silhouette is unremarkable. BONES AND SOFT TISSUES: No acute osseous lesion. Soft tissues are unremarkable. UPPER ABDOMEN: No free air under the diaphragm. IMPRESSION: 1. Right PICC which terminates in the mid superior vena cava. 2. No focal consolidation, pleural effusion or pneumothorax. Signed by: Christina Woodard MD on 01/28/2020 7:01 PM
--- NOTE | 2020-01-28 19:45 | NUR ---
Received patient from day nurse, patient is stable, fall and safety precautions maintained at this time: bed in lowest position and locked, needed items beside bed and call chambers placed close to patient, patient instructed to use it to call nurses for any assistance needed, patient verbalized understanding. Patient is currently stable will continue to monitor.
[2020-01-28] MEDS: ATORVASTATIN 10 MG TAB PO SCH (20:38)
[2020-01-29] VITALS: BP 162/73
[2020-01-29 04:00] VITALS: BP 147/83
[2020-01-29] MEDS: VANCOMYCIN 1GM/NS 250 ML 250 ML IV SCH (06:18)
--- NOTE | 2020-01-29 06:57 | NUR ---
patient endorsed to next shift for continuity of care.
[2020-01-29] MEDS: INSULIN LISPRO 100 UNIT/1 ML 3ML VIAL SQ SCH (07:30)
--- NOTE | 2020-01-29 08:20 | NUR ---
PICC placement XR faxed to [facility]. Carmen with [facility] was notified.
[2020-01-29 08:38] VITALS: BP 171/75
[2020-01-29 08:48] VITALS: BP 171/75
[2020-01-29] MEDS: GLIPIZIDE 5 MG TAB PO SCH (08:52)
[2020-01-29] MEDS: ASPIRIN 325 MG TAB PO SCH (08:52)
[2020-01-29] MEDS: AMLODIPINE BESYLATE 10 MG TAB PO SCH (08:52)
[2020-01-29] MEDS: CELECOXIB 200 MG CAP PO SCH (08:52)
[2020-01-29] MEDS: METFORMIN HCL 500 MG TAB CR PO SCH (08:52)
[2020-01-29] MEDS: MUPIROCIN 2% OINT 22 GM TUBE TOP SCH (08:53)
[2020-01-29] MEDS: LISINOPRIL 20 MG TAB PO SCH (08:53)
--- NOTE | 2020-01-29 09:12 | NUR ---
Dressing changed on right great toe, Dr Colvin had rounds,
--- NOTE | 2020-01-29 09:48 | Progress Note ---
DATE: SUBJECTIVE: The patient is seen and evaluated, available labs and notes reviewed. Discussed with Dr. Chapa. Discussed with the attending, Dr. Arndt. Discussed with the nurse. REVIEW OF SYSTEMS: No nausea, vomiting, fever, chills, chest pain, shortness of breath. Pain is controlled. No cough. No rash. PHYSICAL EXAMINATION: VITAL SIGNS: Temperature 98.4, pulse is 61, respirations 20, blood pressure 137/74. Recheck vital signs; temperature 97.6, pulse 61, respirations 20, and blood pressure 171/75. GENERAL: Alert and oriented, in no acute distress. CV: S1 and S2. CHEST: Equal expansion, clear to auscultation, in no acute distress. HEENT: Moist. No pallor. No JVD. EXTREMITIES: Left ankle dressed after surgery. MEDICATIONS: From ID point of view, the patient is only on vancomycin IV. LABORATORY STUDIES: White count of 10.01, improved from 14.53, hemoglobin 10.5, and platelets 178. No new CMP available. Vancomycin trough was 15.6 on 01/26. SEROLOGY: Coronavirus not detected on 01/22. MICROBIOLOGY: Wound culture was MRSA. RADIOLOGY STUDIES: No new radiology studies available. The patient is status post PICC line to the right upper extremity. ASSESSMENT AND PLAN: 1. Infected left ankle. 2. Status post incision and drainage and hardware removal of the left ankle. 3. Wound culture, methicillin-resistant Staphylococcus aureus. 4. Right plantar foot ulcer. 5. Status post PICC line placement. An order placed in for vancomycin IV for 4 weeks and follow up with Dr. Chapa and weekly labs. Please refer to chart for more information, pending the patient approval for outpatient IV antibiotic. Dictated by Wilver Verdugo PA-C (Al) Devin Chapa MD /MODL /[id number]
--- NOTE | 2020-01-29 10:36 | NUR ---
Per Carmen Kellogg, they will provide nursing care. Will deliver medications this afternoon.
--- NOTE | 2020-01-29 10:54 | Progress Note ---
DATE: 01/29/2020 SUBJECTIVE: The patient at bedside, doing significantly better. Denies any history of fever, chills, nausea, or vomiting. Still has some pain at the left lower extremity, but better. PHYSICAL EXAMINATION: VITAL SIGNS: Afebrile, pulse rate 78, respirations 20, blood pressure 147/83, O2 saturation 100%. EXTREMITIES: Ulceration to the plantar aspect right great toe, continues to improve, a lot of swelling right great toe when compared to the left. Ulcers 2-2.5 cm in diameter with some necrosis noted down the subcutaneous tissue, but healing. Pedal pulses are palpable. ASSESSMENT: Grade 2 ulcer periwound cellulitis with neuropathy. PLAN: We will continue local wound care. The patient okay to be discharged. He is to follow up in the office next week. MAEGAN Overton/KAREN /[id number]
--- NOTE | 2020-01-29 11:10 | Discharge Summary ---
PRIMARY CARE PHYSICIAN: Dr. Naomi De La Torre. CONSULTANTS: 1. Devin Chapa MD. 2. Bk Falk MD. 3. Dewayne Colvin DPM. FINAL DIAGNOSES: 1. Left ankle lateral malleolar cellulitis associated with open wound, associated with osteomyelitis, and associated with hardware infection. 2. On January 27 2020, status post left ankle irrigation and sharp debridement, removal of hardware done by Dr. Bk Falk. 3. Baseline hypertension. 4. Diabetes. 5. Dyslipidemia. SUMMARY: The patient is a 69-year-old male, came in with left ankle open wound infection associated with most likely diabetic foot ulcer. This is in the left mid lateral malleolar area. The microbiology grew out to be MRSA infection consistent in the wound culture obtained. The patient also underwent removal of the hardware as mentioned above by Dr. Bk Falk. The wound culture there also MRSA positive. The patient has been receiving IV vancomycin. Arrangement for patient to go home with 4 weeks of IV antibiotics. PICC line is placed. The patient is stable. Medication prescriptions given. The patient discharged home with the following instructions. 1. Resume home medication. 2. IV vancomycin for [address] Chapa and follow up for weekly lab. 3. Norvasc 5 mg daily. 4. Ecotrin 325 mg daily. 5. Celebrex 200 mg p.r.n. for pain. 6. Tylenol No. 3 p.r.n. for pain. 7. Zofran p.r.n. for nausea and vomiting. The patient is stable. Arrangements were made. Wound care instruction from Dr. Bk Falk. Follow up closely. The patient is stable and discharged home today. MD ERNESTO Haskins/ANITAL /[id number]
[2020-01-29 11:36] VITALS: BP 163/80
--- NOTE | 2020-01-29 11:54 | NUR ---
Per Case management Home Antibiotics has been set up , patient aware about it
[2020-01-29] MEDS ORDERED: AMLODIPINE BESYL5 MG PO (12:29)
[2020-01-29] MEDS ORDERED: CELEBREX100 MG PO (12:30)
[2020-01-29] MEDS ORDERED: ECOTRIN325 MG PO (12:30)
[2020-01-29] MEDS ORDERED: TYLENOL WITH C1 EACH PO (12:36)
[2020-01-29] MEDS ORDERED: ZOFRAN4 MG PO (12:38)
--- NOTE | 2020-01-29 13:55 | NUR ---
Patient discharged home, PICC LINE is intact, dressing intact on left leg and rt great toe, Prescription and F/up instruction given, patient verbalized understanding, Denies any pain, no distress noted, transported via wheelchair to [facility], daughter here to pick him
--- OUTSIDE RECORDS SUMMARY | 2020-02-12 10:00 | XMS REPORT | Continuity of Care Document ---
Author Author Alis Abel Foster DOROTHY Zhong [facility] [employer] Address Unknown Phone Unavailable Care Team Providers Care Brick Chimney Supervisor Name Role Phone [facility] [employer] Unavailable Un available Problems Problem Status Onset Date Classification Date Reported Comments Source (LT ELBOW) M70.22=OLECRANON BURSITIS, L Active 02/06/2017 [facility] OLECRANON BURSITIS, LEFT ELBOW Active [facility] Medications No Data Provided for This Section Allergies, Adverse Reactions, Alerts No Known Medication Allergies Immunizations No Data Provided for This Section Results No Data Provided for This Section Pathology Reports No Data Provided for This Section Diagnostic Reports Report Value Date Source Abscess localization scan NM T ECHNETIUM 99M CERETEC LEUKOCYTE SCAN: HISTORY: Left elbow olecranon bursitis, cellulitis of left upper limb, history of surgery on December 14, 2016, wound VAC in place, elbow infection COMPARISON: None available. TECHNIQUE: Following the labeling of the patient's own white blood cells using 22 uCi technetium 99m Ceretec using sterile technique, the labeled white blood cells were readministered to the patient and subsequent whole-body imaging at 2 hours. Spot imaging of the left and right elbows was performed at 4 hours and 18 hours. Right hand IV injection FINDINGS: The whole-body images demonstrate physiological tracer uptake in the liver and spleen. Additionally, the tracer is physiological within the bone marrow. Mild diffuse uptake in the lungs is noted at 2 hours, a normal finding. There is mild radiotracer uptake in the posterior radial aspect of the left elbow soft tissues on the 18 hour images compatible with focus of acute pyogenic soft tissue inflammation. IMPRESSION: Acute pyogenic soft tissue inflammation in the posterior and radial aspect of the left elbow soft tissues. SL: [id number] 03/06/2017 [facility] Consultation Notes No Data Provided for This Section Discharge Summaries No Data Provided for This Section History and Physicals No Data Provided for This Section Vital Signs No Data Provided for This Section Encounters Location Location Details Encounter Type Encounter Number Reason For Visit Attending Provider ADM Date DC Date Status Source [facility] [id number] Flaquito Herbert 03/06/2017 03/07/2017 [facility] Procedures No Data Provided for This Section Assessment and Plan No Data Provided for This Section Plan of Care No Data Provided for This Section Social History Social History Date Source No data available for this section 03/07/2017 [facility] Family History No Data Provided for This Section Advance Directives No Data Provided for This Section Functional Status No Data Provided for This Section
--- OUTSIDE RECORDS SUMMARY | 2020-02-12 10:00 | XMS REPORT | Continuity of Care Document ---
Author Author Alis Abel Foster DOROTHY Zhong [facility] [employer] Address Unknown Phone Unavailable Care Team Providers Care [employer] Administrator Name Role Phone [facility] Information Exchange Unavailable Un available Problems Problem Status Onset Date Classification Date Reported Comments Source (LT ELBOW) M70.22=OLECRANON BURSITIS, L Active 02/06/2017 [facility] OLECRANON BURSITIS, LEFT ELBOW Active [facility] Medications No Data Provided for This [...] of the left elbow soft tissues. SL: [id number] 03/06/2017 [facility] Consultation Notes No Data Provided for This Section Discharge Summaries No Data Provided for This Section History and Physicals No Data Provided for This Section Vital Signs No Data Provided for This Section Encounters Location Location Details Encounter Type Encounter Number Reason For Visit Attending Provider ADM Date DC Date Status Source [facility] Outpatient [id number] Flaquito Herbert 03/06/2017 03/07/2017 [facility] Procedures No Data Provided for This Section Assessment and Plan No Data Provided for This Section Plan of Care No Data Provided for This Section Social History Social History Date Source No data available for this section 03/07/2017 [facility] Family History No Data Provided for This Section Advance Directives No Data Provided for This Section Functional Status No Data Provided for This Section
--- OUTSIDE RECORDS SUMMARY | 2020-02-12 10:00 | XMS REPORT | Summary of Care ---
Author Author [facility] Organization [facility] Address Unknown Phone Unavailable Encounter [facility] Encntr_alileon(FIN) [id number] Date(s): 03/06/17 - 03/06/17 [facility] [address] [place] [address]- Discharge Disposition: Home or Self Care Attending Physician: Flaquito Herbert MD Referring Physician: Flaquito Herbert MD Vital Signs No data available for this section Problem List No data available for this section Allergies, Adverse Reactions, Alerts No data available for this section Medications No data available for this section Results No data available for this section Immunizations No data available for this section Procedures No data available for this section Social History No data available for this section Assessment and Plan No data available for this section
== END 2020-01-29 13:56 | disposition home or self-care (01) | DRG 464 ==
LOC: ER 23:45 → ERHOLD 01-23 01:30 → MED/SURG 01-23 14:19 → MED/SURG2 01-26 08:34
PROVIDERS: ADMIT Internal Medicine; ATTEND Internal Medicine
PROC: 0KBW0ZZ Excision of Left Foot Muscle, Open Approach (ICD-10-PCS; principal; 2020-01-26)
PROC: 0JBQ0ZZ Excision of Right Foot Subcutaneous Tissue and Fascia, Open Approach (ICD-10-PCS; 2020-01-26)
PROC: 0SPG04Z Removal of Internal Fixation Device from Left Ankle Joint, Open Approach (ICD-10-PCS; 2020-01-27)
PROC: 0JBR0ZZ Excision of Left Foot Subcutaneous Tissue and Fascia, Open Approach (ICD-10-PCS; 2020-01-27)
PROC: 02HV33Z Insertion of Infusion Device into Superior Vena Cava, Percutaneous Approach (ICD-10-PCS; 2020-01-28)
PROC: B548ZZA Ultrasonography of Superior Vena Cava, Guidance (ICD-10-PCS; 2020-01-28)
DX: T84.69XA Infection and inflammatory reaction due to internal fixation device of other site, initial encounter (principal); L03.116 Cellulitis of left lower limb; L97.526 Non-pressure chronic ulcer of other part of left foot with bone involvement without evidence of necrosis; N17.9 Acute kidney failure, unspecified; E11.621 Type 2 diabetes mellitus with foot ulcer; E78.00 Pure hypercholesterolemia, unspecified; E11.22 Type 2 diabetes mellitus with diabetic chronic kidney disease; I12.9 Hypertensive chronic kidney disease with stage 1 through stage 4 chronic kidney disease, or unspecified chronic kidney disease; N18.9 Chronic kidney disease, unspecified; E78.5 Hyperlipidemia, unspecified; L97.512 Non-pressure chronic ulcer of other part of right foot with fat layer exposed; M19.072 Primary osteoarthritis, left ankle and foot; B95.62 Methicillin resistant Staphylococcus aureus infection as the cause of diseases classified elsewhere; Z11.59 Encounter for screening for other viral diseases; E11.42 Type 2 diabetes mellitus with diabetic polyneuropathy; Z79.82 Long term (current) use of aspirin; Z79.84 Long term (current) use of oral hypoglycemic drugs; E86.0 Dehydration
CPT/HCPCS: 36415; 36569; 71045; 76000; 80048; 80053; 80202; 82948; 83036; 84443; 85025; 85651; 87040; 87071; 87075; 87186; 87205; 97139; J0690; J0692; J1650; J1815; J1885; J2001; J2020; J2405; J2543; J2710; J3370; J7030; J7050; J7799; U0002

== ENCOUNTER 2020-03-01 14:19 | Observation (INO) | payer MEDICARE, OTHER ==
[~2020-03-01] VITALS: Ht 190.5 cm; Wt 44.0 kg
[~2020-03-01 14:19] MED LIST changes: +AMLODIPINE BESYL5 MG PO; +CELEBREX100 MG PO; +ECOTRIN325 MG PO; +HYDROCHL PO; +METFORMIN PO; +TYLENOL WITH C1 EACH PO; +ZOFRAN4 MG PO
--- NOTE | 2020-03-01 15:10 | Emergency Department Note ---
History of Present Illnes History of Present Illness Chief Complaint: General Medicine Complaints History of Present Illness This is a 70 year old male Chief Complaint Comment RT UPPER ARM PICC LINE D/T ANTIBIOTICS FOR FOOT INFECTION. STATES ON VANCOMYCIN AND SATURDAY STARTED WITH WHELPS AND RASH. NO RESPIRATORY INVOLVEMENT. PT STATES STOPPED VANC ON SATURDAY. PT STATES DR CUELLAR IS HIS DR AND DIDNT CALL HIM TIL TODAY AND SENT TO ER...PT ON CELL . 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 Any updates have been documented here. Past Medical History Recent Fever: No Clinical Suspicion of Infectio: No New/Unexplained Change in Ment: No Past Medical History: Diabetes Other Medical History: High cholesterol Past Surgical History: Orthopedic Implants Other Surgery: LEFt elbow SURGERY l ankle surgery Other Last Tetanus: UNKNOWN Review of Systems Review of Systems Constitutional: Reports no symptoms EENTM: Reports no symptoms Cardiovascular: Reports no symptoms Respiratory: Reports no symptoms Gastrointestinal: Reports no symptoms Genitourinary: Reports no symptoms Musculoskeletal: Reports no symptoms Integumentary: Reports as per HPI, Reports change in color (Red rash) Neurological: Reports no symptoms Psychological: Reports no symptoms Endocrine: Reports no symptoms Hematological/Lymphatic: Reports no symptoms Physical Exam Related Data Allergies: Coded Allergies: No Known Allergies (Unverified , 12/13/16) Triage Vital Signs Vital Signs Date Time Temp Pulse Resp B/P (MAP) Pulse Ox O2 Delivery O2 Flow Rate FiO2 03/01/20 14:19 98.6 79 16 146/77 98 Room Air Vital signs reviewed: Yes Physical Exam CONSTITUTIONAL Constitutional: Present well-developed, Present well-nourished HENT HENT: Present normocephalic, Present atraumatic, Present oropharynx clear/moist, Present nose normal HENT L/R: Present left ext ear normal, Present right ext ear normal EYES Eyes: Reports PERRL, Reports conjunctivae normal NECK Neck: Present ROM normal PULMONARY Pulmonary: Present effort normal, Present breath sounds normal CARDIOVASCULAR Cardiovascular: Present regular rhythm, Present heart sounds normal, Present capillary refill normal, Present normal rate GASTROINTESTINAL Abdominal: Present soft, Present nontender, Present bowel sounds normal GENITOURINARY Genitourinary: Present exam deferred SKIN Skin: Present warm, Present dry, Present rash (Arms, chest, back, urticarial) MUSCULOSKELETAL Musculoskeletal: Present ROM normal NEUROLOGICAL Neurological: Present alert, Present oriented x 3, Present no gross motor or sensory deficits PSYCHOLOGICAL Psychological: Present mood/affect normal, Present judgement normal Assessment & Plan Medical Decision Making MDM 70-year-old male with a past history significant for chronic osteomyelitis presents the emergency department for a rash. He has a PICC line and got vancomycin on and has subsequently developed a diffuse body rash. No difficulty breathing. He was sent to past of Dr. Cuellar recommended she come into the hospital for further management. Patient will require admission for Allergic reaction and further abx management. Discussed patient with Dr. Fuller who have agreed to accept. Patient is appropriate for transfer to floor. Reassessment Reassessment time: 16:54 Reassessment Well appearing, NAD Assessment & Plan Final Impression: (1) Allergic reaction Depart Disposition: ADMITTED Last Vital Signs Date Time Temp Pulse Resp B/P (MAP) Pulse Ox O2 Delivery O2 Flow Rate FiO2 03/01/20 14:19 98.6 79 16 146/77 98 Room Air Home Meds Reported Medications Ondansetron Hcl* (ZOFRAN*) 4 Mg Tablet, 4 MG PO PRN for NAUSEA AND VOMITING 01/29/20 Acetaminophen With Codeine (TYLENOL WITH CODEINE #3 TABLET) 1 Each Tablet, 300 MG PO Q6H PRN for MODERATE PAIN (4-6), TAB 01/29/20 Celecoxib* (CELEBREX*) 100 Mg Capsule, 200 MG PO BID PRN for MODERATE PAIN (4- 6), #30 CAP 01/29/20 Aspirin (ECOTRIN) 325 Mg Tablet., PO DAILY 01/29/20 Amlodipine Besylate (AMLODIPINE BESYLATE) 5 Mg Tablet, 5 MG PO DAILY, #30 TAB 01/29/20 [Hydrochl/Metformin ] No Conflict Check, 1500 MG PO BID 01/23/20 Atorvastatin Calcium (ATORVASTATIN CALCIUM) 10 Mg Tablet, 40 MG PO 2099, #30 TAB 12/13/16 Lisinopril (LISINOPRIL) 10 Mg Tablet, 40 MG PO DAILY, #30 TAB 12/13/16 Glipizide (GLIPIZIDE) 5 Mg Tablet, 2.5 MG PO DAILY, TAB 12/13/16 KEILA HICKS MD Mar 01, 2020 15:10
--- OUTSIDE RECORDS SUMMARY | 2020-03-01 15:24 | XMS REPORT | Continuity of Care Document ---
Author Author [facility] t Organization [facility] Address [address] [place] [address] Phone Unavailable Care Team Providers Care Computer Applications Developer Name Role Phone MD Matilda BERRY PCP NICK GALDAMEZ Attphys Unavailable Piedad Herbert Attphys NICK GALDAMEZ Admphys Unavailable Payers Payer Name Policy Type Policy Number Effective Date Expiration Date Rissa tapia [facility] [id number] 2017 00:00:00 [facility] Cdc Review Covid19 [id number] [facility] Problems Condition Name Condition Details Condition Category Status Onset Date Resolution Date Last Treatment Date Treating Clinician Comments Source (LT ELBOW) M70.22=OLECRANON BURSITIS, L (LT ELBOW) M70.22=OLECRANON BURSITIS, L Active 02/06/2017 Lucrecia Diagnosis A ctive 2017-02-06 00:00:00 2017-03-06 10:48:00 M erinn Roman Abscess of elbow Problem Active [facility] Cellulitis of left ankle Problem Active [facility] Wound of left ankle Problem Active [facility] OLECRANON BURSITIS, LEFT ELBOW OLECRANON BURSITIS, LEFT ELBOW Active [facility] Diagnosis Active 2017-03-06 10:48 :00 [facility] Allergies, Adverse Reactions, Alerts This patient has no known allergies or adverse reactions. Social History Social Habit Start Date Stop Date Quantity Comments Source Social History 2017-03-07 04:59:00 2017-03-07 04:59:00 [facility] Sex Assigned At 1950 00:00:00 1950 00:00:00 Male [facility] Medications Ordered Medication Name Filled Medication Name Start Date Stop Da te Current Medication? Ordering Clinician Indication Dosage Frequency Signature (SIG) Comments Components Source Acetaminophen With Codeine (Tylenol With Codeine #3 Ta blet) 1 Each TABLET Acetaminophen With Codeine (Tylenol With Codeine #3 Tablet) 1 Each TABLET Yes 300 Every 6 Hours as needed for Moderate Bharathi n (4-6) [facility] Amlodipine Besylate Amlodipine Besylate Yes 5 Daily [facility] Aspirin (Ecotrin) 325 Mg TABLET. Aspirin (Ecotrin) 325 Mg TABLET. Yes Daily [facility] Atorvastatin Calcium Atorvastatin Calcium Yes 40 Today At 9:00PM [facility] Celecoxib (Celebrex*) 100 Mg CAPSULE Celecoxib (Celebrex*) 100 Mg C APSULE Yes 200 Twice A Day as needed for Moderate Pain (4-6) [facility] Glipizide Glipizide Yes 2.5 Daily [facility] Hydrochl/Metformin Hydrochl/Metformin Yes 1500 Twice A Day [facility] Lisinopril Lisinopril Yes 40 Daily [facility] Ondansetron Hcl (Zofran*) 4 Mg TABLET Ondansetron Hcl (Zofran*) 4 M g TABLET Yes 4 as needed for Nausea And Vomiting [facility] Amlodipine Besylate Amlodipine Besylate 2020-01-23 00:00:00 No 10 Daily [facility] Aspirin (Asa) 81 Mg TAB Aspirin (Asa) 81 Mg TAB 2020-01-23 00:00 :00 No 81 Daily [facility] Hydrochlorothiazide Hydrochlorothiazide 2020-01-23 00:00:00 No 12.5 Twice A Day [facility] Hydrocodone Bit/Acetaminophen ([place] 10-325 Tablet) 1 Each TABLET Hydrocodone Bit/Acetaminophen ([place] 10-325 Tablet) 1 Each TABLET 2020-01-23 00:00:00 No 1 Every 6 Hours as needed for Pain [facility] Ibuprofen Ibuprofen 2020-01-23 00:00:00 No 100 Daily [facility] Meloxicam Meloxicam 2020-01-23 00:00:00 No 7.5 Daily [facility] Metformin Hcl Metformin Hcl 2020-01-23 00:00:00 No 1000 Twice A Day [facility] Multivitamins Multivitamins 2020-01-23 00:00:00 No 1 Daily [facility] Penicillin V Potassium Penicillin V Potassium 2020-01-23 00:00:0 0 No 500 Before Meals And At Bedtime [facility] Sulfamethoxazole/Trimethoprim (Sulfamethoxazole-Tmp Ds Tab) 1 Each TABLET Sulfamethoxazole/Trimethoprim (Sulfamethoxazole-Tmp Ds Tab) 1 Each TABLET 2016-12-20 00:00:00 No 1 1-2 Times Daily [facility] Vital Signs Vital Name Observation Time Observation Value Comments Source Body Temperature 2020-01-29 11:36:00 97.6 [degF] [facility] Weight 2020-01-23 15:46:00 200 [lb_av] [facility] BMI (Body Mass Index) 2020-01-23 15:46:00 25.0 kg/m2 [facility] Procedures Procedure Date / Time Performed Performing Clinician Elsie ho Magnetic resonance imaging of left ankle without contrast 01-22 00:00:00 [facility] Plan of Care Planned Activity Planned Date Details Comments Source Instructions Cellulitis [facility] Encounters Start Date/Time End Date/Time Encounter Type Admission Type [facility] Care Department Encounter ID Source 2017-03-06 08:30:00 2017-03-06 23:59:00 Outpatient [place] Herbert [facility] [id number] Results Test Description Test Time Test Comments Results Result Comments Source Capillary blood glucose measurement by glucometer (mas s/volume) 2020-01-29 07:47:00 Test Item Bedside Glucose (test code = 56968-0) 218 70-120 Meter ID: [id number] [facility] [id number] 18:42:00 [facility] [address] [address] Patient Name: DOROTHY HER MR #: [id number] : 1950 Age/Sex: 69/M Req #: [id number] Adm Physician: NICK GALDAMEZ MD Ordered by: NICK GALDAMEZ MD Report #: [id number] Location: [facility]SURG Room[facility]Bed: [facility] Procedure: [id number] DX/CHEST XRAY LINE PLACEMENT Exam Date: 01/28/20 Exam Time: 1820 REPORT STATUS: Signed EXAMINATION: C HEST XRAY LINE PLACEMENT INDICATION: PICC placement. COMPARISON: None FINDINGS: TUBES and LINES: There is a right PICC which terminates in the mid superior vena cava. LUNGS/PLEURA: No focal consolid ation, pleural effusion or pneumothorax. HEART AND MEDIASTINUM: The cardio mediastinal silhouette is unremarkable. BONES AND SOFT TISSUES: No acu te osseous lesion. Soft tissues are unremarkable. UPPER ABDOMEN: No free air under the diaphragm. IMPRESSION: 1. Right PICC which termin ates in the mid superior vena cava. 2. No focal consolidation, pleural effusi on or pneumothorax. Signed by: Ernst Bello MD on 01/28/2020 7:01 PM Dictated By: ERNST BELLO MD 00 Transcribed By: MARTIN on 01/28/201900 COPY TO: NICK GALDAMEZ MD Serum or plasma sodium measurement (moles/volume)2020-01-28 12:05:00* Test Item Value Reference Range Interpretation Comments Sodium Level (test code = 2951-2) 140 136-145 [facility] potassium measurement (moles/volume)2020-01-28 12:05:00* Test Item Value Reference Range Interpretation Comments Potassium Level (test code = 2823-3) 4.3 3.5-5.1 [facility] plasma chloride measurement (moles/volume)2020-01-28 12:05:00* Test Item Value Reference Range Interpretation Comments Chloride Level (test code = 2075-0) 111 98-107 [facility] plasma carbon dioxide, total measurement (moles/volume)2020-01-28 12:05:00* Test Item Value Reference Range Interpretation Comments Carbon Dioxide Level (test code = 2028-9) 24 22-29 [facility] plasma anion [id number] 12:05:00* Test Item Value Reference Range Interpretation Comments Anion Gap (test code = 43283-2) 9.3 8-16 [facility] plasma urea nitrogen measurement (mass/volume)2020-01-28 12:05:00* Test Item Value Reference Range Interpretation Comments Blood Urea Nitrogen (test code = 3094-0) 18 7-26 [facility] plasma creatinine measurement (mass/volume)2020-01-28 12:05:00* Test Item Value Reference Range Interpretation Comments Creatinine (test code = 2160-0) 1.10 0.72-1.25 [facility] plasma urea nitrogen/creatinine mass [id number] 12:05:00* Test Item Value Reference Range Interpretation Comments BUN/Creatinine Ratio (test code = 3097-3) 16 6-25 [facility] glomerular filtration rate (GFR) zaxscspsotpcx3190-78-83 12:05:00* Test Item Value Reference Range Interpretation Comments Estimat Glomerular Filtration Rate (test code = 208516882) > 60 >60 Ranges were taken from the National Kidney Disease Education Program and the [facility] literature.Reference ranges:60 or greater: Scqlhx15-34 ( for 3 consecutive months): Chronic kidney disease 15 or less: Kidney failureUniversity Medical Center of El PasoGlucose mynqzrpbaer3296-25-44 12:05:00* Test Item Value Reference Range Interpretation Comments Glucose Level (test code = EGS2007) 82 74-118 [facility] plasma calcium measurement (mass/volume)2020-01-28 12:05:00* Test Item Value Reference Range Interpretation Comments Calcium Level (test code = 64365-0) 8.1 8.4-10.2 [facility] or plasma trough vancomycin level at trough (mass/volume)2020-01-27 18:26:00* Test Item Value Reference Range Interpretation Comments Vancomycin Level Trough (test code = 4092-3) 15.6 5.0-10.0 Results repeated and called to SHILPI KELLEY at 1921 on 01/27/20 by SCHUYLER MOBLEY. Read back and verified.[facility] Paso[facility]acteria identification in wound by [id number] 08:15:00* Test Item Value Reference Range Interpretation Comments Wound Culture (test code = 6462-6) STAPHYLOCOCCUS AUREUS-MRSA [facility] PasoFOOT RIGHT [id number] 20:09:00 [facility] [address] [address] Patient Name: DOROTHY HER MR #: [id number] : 1950 Age/Sex: 69/M Req #: [id number] Adm Physician: NICK GALDAMEZ MD Ordered by: ZAINA LINCOLN DPM Report #: [id number] Location: MED/SURG Room/Bed: [facility] Procedure: [id number] DX/FOOT RIGHT COM PLETE Exam Date: 01/25/20 Exam Time: 1949 REPORT STATUS: Signed X-ray of the right f oot HISTORY: Pain. COMPARISON: None available. FINDINGS: Bon es/joints: No acute fracture or dislocation. There are severe degenerative queenie nges at the first metatarsophalangeal joint characterized by joint space narro wing, subchondral sclerosis, subchondral cystic changes and marginal osteophyt es. There is an os peroneum and a prominent calcaneal spur. Soft tissues:Th e soft tissues appear unremarkable. IMPRESSION: 1. No acute fracture or dislocation. 2. 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 Signed by: Ernst Bello MD on 01/25/2020 8:15 PM Dictated By: ERNST BELLO MD 14 Transcribed By: MARTIN on 01/25/202014 COPY TO: ZAINA LINCOLN DPDick ANKLE 3+ VIEWS [id number] 10:26:[address] [address] Patient Name: DOROTHY HER MR #: [id number] : 1950 Age/Sex: 69/M Req #: [id number] Adm Physician: NICK GALDAMEZ MD Ordered by: INGRIS AHUJA MD Report #: [id number] Location: MED/SURG2 Room/Bed: [facility] Procedure: [id number] DX/ANKLE 3+ VIE WS LEFT Exam Date: 01/25/20 Exam Time: 946 REPORT STATUS: Signed EXAMINATION: ANKL E 3+ VIEWS LEFT INDICATION: Left ankle infection COMPARISON: None FINDINGS: AP, lateral and oblique radiographs of the left ankle d emonstrate postoperative findings of prior ORIF of the left distal fibula with plate and screw construct. No acute fracture or dislocation. Alignment is ellen r-anatomic. Hardware is intact without evidence of complication. Soft tissue s welling overlying the lateral malleolus. No definite radiographic evidence of osteomyelitis. No substantial ankle joint effusion. Scattered atherosclerotic arterial calcifications. Plantar calcaneal spur. IMPRESSION: Lateral l eft ankle soft tissue swelling. No underlying acute osseous injury or specific radiographic evidence of osteomyelitis. Postoperative findings of distal f ibular ORIF without radiographic evidence of hardware complication. Ashlyn d by: Nehemias Espinal MD on 01/25/2020 10:29 AM Dictated By: NEHEMIAS ESPINAL MD El ectronically Signed By: NEHEMIAS ESPINAL MD on 01/25/20 1029 Transcribed By: MARTIN on 01/25/20 1029 COPY TO: INGRIS AHUJA MD MRI ANKLE LEFT WO 2020-01-24 06:20:[address] [address] Patient Name: DOROTHY HER MR #: [id number] : 1950 Age/Sex: 69/M Req #: [id number] [facility] Physician: NICK GALDAMEZ MD Ordered by: NICK GALDAMEZ MD Report #: [id number] Location: MED/SURG Room/Bed: [facility] Procedure: [id number] MRI/MRI ANKLE LEFT WO Exam Date: Exam Time: REPORT STATUS: Signed EXAM: MRI OF THE RIGHT ANKLE WITH OUT CONTRAST INDICATION: Infection of the lateral side of ankle COMPAR LUANN: None. TECHNIQUE: Multiplanar, multisequence imaging of the right ankl e was performed without contrast using departmental protocol. DISCUSSION: Bones and bone marrow: Intact plate and screw fixation hardware along the lateral aspect of the distal fibula and lateral malleolus. Preserved fatty m arrow signal within the distal fibula. Screw tracks through the distal tibia a nd calcaneal body Joints: Degenerative changes. No dislocations. Ligam ent: Torn scarred and thickened tibiofibular talofibular calcaneofibular ligam ents. Thickened/scarring deltoid ligament. Tendons: The Achilles tendon, an terior compartment tendons, and lateral and medial compartment tendons are nor mal. Sinus tarsi: The sinus tarsi is normal in appearance. Soft tis sues: Subcutaneous edema about the ankle and foot. The visualized vessels are normal in appearance. IMPRESSION: Subcutaneous edema about the ankle and foot consistent with cellulitis. Low suspicion for osteomyelitis. Sig nirali by: Billy Fulton DO on 01/24/2020 7:22 AM Dictated By: BILLY HELMS DO 1 Transcr ibed By: MARTIN on 01/24/20721 COPY TO: NICK GALDAMEZ MD Blood leukocytes automated count (number/volume)2020-01-24 05:06:00* Test Item Value Reference Range Interpretation Comments White Blood Count (test code = 6690-2) 10.01 4.8-10.8 [facility] erythrocytes automated count (number/volume)2020-01-24 05:06:00* Test Item Value Reference Range Interpretation Comments Red Blood Count (test code = 789-8) 3.46 4.3-5.7 [facility] Paso[facility] hemoglobin measurement (moles/volume)2020-01-24 05:06:00* Test Item Value Reference Range Interpretation Comments Hemoglobin (test code = 31646-7) 10.5 14.0-18.0 [facility] PasoAutomated blood hematocrit (volume fraction)2020-01-24 05:06:00* Test Item Value Reference Range Interpretation Comments Hematocrit (test code = 4544-3) 31.8 38.2-49.6 [facility] PasoAutomated erythrocyte mean corpuscular pmcxgc7472-20-21 05:06:00* Test Item Value Reference Range Interpretation Comments Mean Corpuscular Volume (test code = 787-2) 91.9 81-99 [facility] PasoAutomated erythrocyte mean corpuscular hemoglobin (mass per erythrocyte)2020-01-24 05:06:00* Test Item Value Reference Range Interpretation Comments Mean Corpuscular Hemoglobin (test code = 785-6) 30.3 28-32 [facility] PasoAut[facility] erythrocyte mean corpuscular hemoglobin concentration measurement (mass/volume)2020-01-24 05:06:00* Test Item Value Reference Range Interpretation Comments Mean Corpuscular Hemoglobin Concent (test code = 786-4) 33.0 31-35 [facility] PasoRDW FotCw-[id number] 05:06:00* Test Item Value Reference Range Interpretation Comments Red Cell Distribution Width (test code = 28166-9) 13.6 11.7 -14.4 [facility] PasoAutec[facility] hospitaled blood platelet count (count/volume)2020-01-24 05:06:00* Test Item Value Reference Range Interpretation Comments Platelet Count (test code = 777-3) 178 140-360 [facility] PasoAutecu health [facility] hospitaled blood segmented neutrophil count as percentage of total jdjxzxtkuj8852-72-31 05:06:00* Test Item Value Reference Range Interpretation Comments Neutrophils (%) (Auto) (test code = 67361-4) 70.1 38.7-80.0 [facility] PasoAutecu health [facility] hospitaled blood lymphocyte count as percentage ot total lomtmrkrwt1552-41-70 05:06:00* Test Item Value Reference Range Interpretation Comments Lymphocytes (%) (Auto) (test code = 736-9) 14.7 18.0-39.1 [facility] PasoAutomated blood monocyte count as percentage of total lggurmjpjq3500-15-02 05:06:00* Test Item Value Reference Range Interpretation Comments Monocytes (%) (Auto) (test code = 5905-5) 10.7 4.4-11.3 [facility] PasoAutomated blood eosinophil count as percentage of total geblwxdaws0812-41-44 05:06:00* Test Item Value Reference Range Interpretation Comments Eosinophils (%) (Auto) (test code = 713-8) 3.5 0.0-6.0 [facility] PasoAutomated blood basophil count as percentage of total ljposchwvt3198-55-38 05:06:00* Test Item Value Reference Range Interpretation Comments Basophils (%) (Auto) (test code = 706-2) 0.5 0.0-1.0 [facility] PasoFluoroscopic procedure less than one hour iwciwtmp0932-28-51 05:06:00* Test Item Value Reference Range Interpretation Comments IM GRANULOCYTES % (test code = IM GRANULOCYTES %) 0.5 0.0- 1.0 [facility] PasoAutomated blood neutrophil count 2020-01-24 05:06:00* Test Item Value Reference Range Interpretation Comments Neutrophils # (Auto) (test code = 751-8) 7.0 2.1-6.9 [facility] PasoBlood lymphocytes count (number/volume) 2020-01-24 05:06:00* Test Item Value Reference Range Interpretation Comments Lymphocytes # (Auto) (test code = 95327-9) 1.5 1.0-3.2 [facility] PasoBlood monocytes automated count (number/volume)2020-01-24 05:06:00* Test Item Value Reference Range Interpretation Comments Monocytes # (Auto) (test code = 742-7) 1.1 0.2-0.8 [facility] PasoAutomated blood eosinophil count 2020-01-24 05:06:00* Test Item Value Reference Range Interpretation Comments Eosinophils # (Auto) (test code = 711-2) 0.4 0.0-0.4 [facility] PasoAutomated blood basophil count (count/volume)2020-01-24 05:06:00* Test Item Value Reference Range Interpretation Comments Basophils # (Auto) (test code = 704-7) 0.1 0.0-0.1 [facility] PasoFluoroscopic procedure less than one hour blcdekpe2781-74-88 05:06:00* Test Item Value Reference Range Interpretation Comments Absolute Immature Granulocyte (auto (chaim t code = Absolute Immature Granulocyte (auto) 0.05 0-0.1 [facility] PasoErythrocyte sedimentation rate by Westergren [id number] 05:06:00* Test Item Value Reference Range Interpretation Comments Erythrocyte Sedimentation Rate (test code = 4537-7) 75 0- 13 [facility] PasoFluoroscopic procedure less than one hour kzishrzy3820-30-91 05:06:00* Test Item Value Reference Range Interpretation Comments Hemoglobin A1c Percent (test code = Hemoglobin A1c Percent) 7.3 4.0-7.0 [facility] or plasma thyrotropin measurement by detection limit <= 0.005 miu/l (units/volume)2020-01-24 05:06:00* Test Item Value Reference Range Interpretation Comments Thyroid Stimulating Hormone (TSH) (test code = 56082-1) 1.007 0.350-4.940 [facility] PasoFluoroscopic procedure less than one hour rmykscws0132-98-09 00:24:00* Test Item Value Reference Range Interpretation Comments Coronavirus (PCR) (test code = Coronavirus (PCR)) NOT DETECTED NOTD ETECTED SARS-COV-2 (COVID19), HIGHRISK, RT-PCRNegative results do not preclude SARS-CoV- 2 infection and should not be used as the sole basis for patient management deci sions. Negative results must be combined with clinical observations, patient his tory, and epidemiological information. Optimum specimen types and timing for pea k viral levels during infections caused by SARS-CoV-2 have not been determined. Collection of multiple specimens ot types of specimens may be necessary to detec t virus. Improper specimen collection and handling, sequence variability under p rimers/probes, or organism present below the limit of detection may lead to fals e negative results. Positive and negative predictive values of testing are highl y dependent on prevalance. False negative test results are more likely when prev alence is high.The expected result is negative (not detected).The SARS-CoV-2 chaim t is intended for the qualitative detection of nucleic acid from SARS-CoV-2 in n asopharyngeal and oropharyngeal swab samples from patients who meet COVID-19 cli nical and or epidemiological criteria. For lower respiratory tract specimens, th e assay is submitted for authoriztion by FDA under an Emergency Use Authorizatio n (EUA). Testing methodology is real time RT-PCR. If received as separate collec tion devices, nasopharygeal and oropharyngeal specimens are combined for analysi s. Additional specimens may be split to a separate accession for analysi and rep orting as this test includes a single unit of service.Test results must be corre lated with clinical presentation and evaluated in the context of other laborator y and epidemiologic data. Test performance can be affected because the epidemiol ogy and clinical spectrum of infection caused by SARS-CoV-2 is not fully known. For example, the optimum types of specimens to collect and when during the cours e of infection these specimens are most likely to contain detectable viral RNA m ay not be known.This test has not been Food and Drug Administration (FDA) cleare d or approved and has been authorized by FDA under an Emergency Use Authorizatio n (EUA). The test is only authorized for the duration of the declaration that ci rcumstances exist justifying the authorization of emergency use of in vitro diag nostic tests for detection and/or diagnosis of SARS-CoV-2 under section 564(b) o f the Act, 21 U.S.C. section 360bbb-3(b)(1), unless the authorization is termina ashley or revoked sooner. [facility] are certified under the C linical Laboratory Improvement Amendments of 1988 (CLIA), 42 U.S.C. section 263a , to perform high complexity tests.Testing performed by [facility] [id number] [place] [address] [phone] Director: Inderjit Durham M.D.CLLESTER # [id number] Health [facility] Hospitalerum or plasma total bilirubin measurement (mass/volume)2020-01-23 00:20:00* Test Item Value Reference Range Interpretation Comments Total Bilirubin (test code = 1975-2) 1.2 0.2-1.2 [facility] PasoFluoroscopic procedure less than one hour itvxsoue3592-20-47 00:20:00* Test Item Value Reference Range Interpretation Comments Aspartate Amino Transf (AST/SGOT) (test code = Aspartate Amino Transf (AST/SGOT)) 34 5-34 [facility] or plasma alanine aminotransferase measurement (enzymatic activity/volume)2020-01-23 00:20:00* Test Item Value Reference Range Interpretation Comments Alanine Aminotransferase (ALT/SGPT) (test code = 1742-6) 27 0-55 [facility] Hospitalerum or plasma protein measurement (mass/volume)2020-01-23 00:20:00* Test Item Value Reference Range Interpretation Comments Total Protein (test code = 2885-2) 8.8 6.5-8.1 [facility] Hospitalerum or plasma albumin measurement (mass/volume)2020-01-23 00:20:00* Test Item Value Reference Range Interpretation Comments Albumin (test code = 1751-7) 3.8 3.5-5.0 [facility] PasoPlasma globulin measurement (mass/volume) 2020-01-23 00:20:00* Test Item Value Reference Range Interpretation Comments Globulin (test code = 47650-8) 5.0 2.3-3.5 [facility] Hospitalerum or plasma albumin/globulin mass [id number] 00:20:00* Test Item Value Reference Range Interpretation Comments Albumin/Globulin Ratio (test code = 1759-0) 0.8 0[facility]2.0 [facility] alkaline phosphatase measurement (enzymatic activity/volume)2020-01-23 00:20:00* Test Item Value Reference Range Interpretation Comments Alkaline Phosphatase (test code = 6768-6) 78 40-150 [id number] 00:20:00* Test Item Value Reference Range Interpretation Comments Blood Culture (test code = [id number]) NO GROWTH AFTER 5 DAYS, FINAL REPORT [facility]
--- OUTSIDE RECORDS SUMMARY | 2020-03-01 15:24 | XMS REPORT | Continuity of Care Document ---
Author Author Alis Abel Foster DOROTHY Zhong [facility] Yasuu Address Unknown Phone Unavailable Care Team Providers Care Editor City Name Role Phone [facility] Information Exchange Unavailable Un available Problems Problem Status Onset Date Classification Date Reported Comments Source (LT ELBOW) M70.22=OLECRANON BURSITIS, L Active 02/06/2017 [facility] OLECRANON BURSITIS, LEFT ELBOW Active [facility] Medications No Data Provided for This [...] of the left elbow soft tissues. SL: [id number] 03/06/2017 [facility] Consultation Notes No Data Provided for This Section Discharge Summaries No Data Provided for This Section History and Physicals No Data Provided for This Section Vital Signs No Data Provided for This Section Encounters Location Location Details Encounter Type Encounter Number Reason For Visit Attending Provider ADM Date DC Date Status Source [facility] Outpatient [id number] Flaquito Herbert 03/06/2017 03/07/2017 [facility] Procedures No Data Provided for This Section Assessment and Plan No Data Provided for This Section Plan of Care No Data Provided for This Section Social History Social History Date Source No data available for this section 03/07/2017 [facility] Family History No Data Provided for This Section Advance Directives No Data Provided for This Section Functional Status No Data Provided for This Section
[2020-03-01] MEDS ORDERED: DIPHENHYDRAMINE HCL 25 MG CAP PO ONE (16:45)
[2020-03-01] MEDS ORDERED: FAMOTIDINE 20 MG TAB PO ONE (16:45)
--- OUTSIDE RECORDS SUMMARY | 2020-03-01 18:14 | XMS REPORT | Continuity of Care Document ---
Author Author Alis Abel Foster DOROTHY Zhong [facility] [place] Address Unknown Phone Unavailable Care Team Providers Care Director Supplier Quality Name Role Phone [facility] Information Exchange Unavailable Un available Problems Problem Status Onset Date Classification Date Reported Comments Source (LT ELBOW) M70.22=OLECRANON BURSITIS, L Active 02/06/2017 [facility] OLECRANON BURSITIS, LEFT ELBOW Active [facility] Medications No Data Provided for This [...] of the left elbow soft tissues. SL: [id number] 03/06/2017 [facility] Consultation Notes No Data Provided for This Section Discharge Summaries No Data Provided for This Section History and Physicals No Data Provided for This Section Vital Signs No Data Provided for This Section Encounters Location Location Details Encounter Type Encounter Number Reason For Visit Attending Provider ADM Date DC Date Status Source [facility] Outpatient [id number] Flaquito Herbert 03/06/2017 03/07/2017 [facility] Procedures No Data Provided for This Section Assessment and Plan No Data Provided for This Section Plan of Care No Data Provided for This Section Social History Social History Date Source No data available for this section 03/07/2017 [facility] Family History No Data Provided for This Section Advance Directives No Data Provided for This Section Functional Status No Data Provided for This Section
[2020-03-01 18:16] LABS: BASOPHILS % 0.2 % (0.0-1.0); EOSINOPHILS # (AUTO) 3.2 (0.0-0.4); EOSINOPHILS % 34.5 % (0.0-6.0); HEMATOCRIT 32.8 % (38.2-49.6); LYMPHOCYTES # (AUTO) 0.8 (1.0-3.2); LYMPHOCYTES % 8.8 % (18.0-39.1); MEAN CORPUSCULAR HEMOGLOBIN 30.3 pg (28-32); MEAN CORPUSCULAR HGB CONC 33.5 g/dL (31-35); MEAN CORPUSCULAR VOLUME 90.4 fL (81-99); MONOCYTES # (AUTO) 0.5 (0.2-0.8); MONOCYTES % 5.1 % (4.4-11.3); NEUTROPHILS # (AUTO) 4.8 (2.1-6.9); PLATELET COUNT 149 x10e3/uL (140-360); RED BLOOD COUNT 3.63 x10e6/uL (4.3-5.7); RED CELL DISTRIBUTION WIDTH 14.2 % (11.7-14.4)
[2020-03-01 18:37] LABS: ALBUMIN 2.7 g/dL (3.5-5.0); ALBUMIN/GLOBULIN RATIO 0.9 (0.8-2.0); ANION GAP 13.8 mmol/L (8-16); CALCIUM 7.6 mg/dL (8.4-10.2); POTASSIUM 3.8 mmol/L (3.5-5.1)
[2020-03-01 20:12] VITALS: BP 162/77
[2020-03-01 21:00] VITALS: BP 162/77
[2020-03-02] VITALS (9 sets, daily range): BP systolic 126–162; BP diastolic 58–80
[2020-03-02] MEDS ORDERED: FAMOTIDINE 20 MG TAB PO PRN (00:45)
[2020-03-02] MEDS ORDERED: SODIUM CHLORIDE 0.9% 1000ML 1,000 ML IV SCH (00:45)
[2020-03-02 05:22] LABS: HEMATOCRIT 34.9 % (38.2-49.6); HEMOGLOBIN 11.6 g/dL (14.0-18.0); MEAN CORPUSCULAR HGB CONC 33.2 g/dL (31-35); MEAN CORPUSCULAR VOLUME 90.2 fL (81-99); PLATELET COUNT 168 x10e3/uL (140-360); RED BLOOD COUNT 3.87 x10e6/uL (4.3-5.7); RED CELL DISTRIBUTION WIDTH 14.3 % (11.7-14.4)
[2020-03-02] MEDS: DIPHENHYDRAMINE HCL 25 MG CAP PO PRN (05:22)
[2020-03-02 05:42] LABS: ANION GAP 13.8 mmol/L (8-16); CALCIUM 7.6 mg/dL (8.4-10.2); CREATININE, SERUM 1.83 mg/dL (0.72-1.25); POTASSIUM 3.8 mmol/L (3.5-5.1)
[2020-03-02] MEDS ORDERED: METFORMIN HCL1000 MG PO (07:33)
[2020-03-02] MEDS ORDERED: ACETAMINOPHEN 325 MG TAB PO PRN (09:15)
[2020-03-02] MEDS ORDERED: DEXTROSE 50% SYRINGE 50 ML IV PRN (09:15)
[2020-03-02] MEDS ORDERED: ONDANSETRON HCL INJ 2MG/ML 2ML 2 MG/ML VIAL IV PRN (09:15)
--- NOTE | 2020-03-02 10:03 | Consultation ---
DATE OF CONSULTATION: 03/02/2020 REASON FOR CONSULTATION: Ulceration to the right great toe. HISTORY OF PRESENT ILLNESS: A pleasant 70-year-old white male, who is very well known to me due to the fact that he has been following up for a nonhealing ulceration, getting better to the right great toe, who had a reaction to vancomycin, has a lot of rash around his body and is cellulitic. He was having some fever. He is denying any history of fever, chills, nausea, or vomiting at this point. PAST MEDICAL HISTORY: Remarkable for ilp-eyhuxaq-mrswkhxuf diabetes, hypertension, and hypercholesteremia. PAST SURGICAL HISTORY: Remarkable for left ankle surgery, tonsillectomy, and cataract surgery. ALLERGIES: TO VANCOMYCIN. SOCIAL HISTORY: No smoking, drinking, or recreational drug use. Lives with his daughter. FAMILY HISTORY: Remarkable for diabetes. CURRENT MEDICATIONS: Noted and listed in the chart. REVIEW OF SYSTEMS: CARDIAC: Denies any palpitations or arrhythmias. RESPIRATORY: Denies any shortness of breath or productive cough. GASTROINTESTINAL: Denies any diarrhea or constipation. GENITOURINARY: Denies hematuria or problems with voiding. PHYSICAL EXAMINATION: VITAL SIGNS: Afebrile, pulse rate 56, respirations 20, blood pressure 126/58, and O2 saturation 98%. PODIATRIC PHYSICAL EXAMINATION: Pedal pulses are noted to be palpable to both the DP and PT, but diminished. Neurological examination reveals loss of protective sensation when utilizing Carson-Leon 5.07 monofilament wire. Muscle mass is symmetrical. Muscle strength is 4 to 5/5 to all muscle groups. Dermatological examination reveals a grade 2 ulceration on plantar aspect of right great toe measuring 2 to 2.5 cm in diameter, some granulation tissue noted with periwound cellulitis present. ASSESSMENT: Grade 2 ulcer cellulitis with neuropathy. PLAN: We will start applying Bactroban ointment to the affected area, offloading with pillow under calf. We will continue to follow. MAEGAN Overton/KAREN /[id number]
--- NOTE | 2020-03-02 11:56 | NUR ---
General Medicine Complaints History of Present Illness This is a 70 year old male Chief Complaint Comment RT UPPER ARM PICC LINE D/T ANTIBIOTICS FOR FOOT INFECTION. STATES ON VANCOMYCIN AND SATURDAY STARTED WITH WHELPS AND RASH. NO RESPIRATORY INVOLVEMENT. His home health was called me Saturday we contacted them to withhold his vancomycin and of his withhold on Saturday I gave them order to to recheck CBC and chemistry panel today the patient called me things and feeling well so we told him to come to the emergency room Historian: Patient Arrival Mode: Car Additional Treatment TIN DIPPER: Bendryl this morning Rotary Cutter Feeder Required: No Onset (how long ago): day(s) (5) Location: Arms, chest Quality: Itching Radiation: Reports non-radiation Severity: moderate Onset quality: gradual Duration (how long): day(s) (5) Timing of current episode: constant Progression: improving Chronicity: new Context: Reports recent illness (Chronic osteo) Relieving factors: none Exacerbating factors: none Associated symptoms: Reports denies other symptoms Past Medical/Family History Physician Review I have reviewed the patient's past medical and family history. Any updates have been documented here. Past Medical History Recent Fever: No Clinical Suspicion of Infectio: No New/Unexplained Change in Ment: No Past Medical History: Diabetes Other Medical History: High cholesterol Past Surgical History: Orthopedic Implants Other Surgery: LEFt elbow SURGERY l ankle surgery Other Last Tetanus: UNKNOWN Review of Systems Review of Systems Constitutional: Reports no symptoms EENTM: Reports no symptoms Cardiovascular: Reports no symptoms Respiratory: Reports no symptoms Gastrointestinal: Reports no symptoms Genitourinary: Reports no symptoms Musculoskeletal: Reports no symptoms Integumentary: Reports as per HPI, Reports change in color (Red rash) Neurological: Reports no symptoms Psychological: Reports no symptoms Endocrine: Reports no symptoms Hematological/Lymphatic: Reports no s
[2020-03-02] MEDS: INSULIN LISPRO 100 UNIT/1 ML 3ML VIAL SQ SCH ×3 (12:00→21:00)
[2020-03-02] MEDS: LORATADINE 10 MG TAB PO SCH (12:00)
[2020-03-02] MEDS: FAMOTIDINE 20 MG TAB PO SCH ×2 (12:00→16:30)
[2020-03-02] MEDS: METHYLPREDNISOLONE SOD SUCC 40 MG/ML VIAL 1ML IV SCH ×2 (13:06→21:12)
--- NOTE | 2020-03-02 13:33 | NUR ---
WOUND CARE CONSULT FOR 70 YO MALE HX OF MRSA LEFT ANKLE, ALLERGIC REACTION,ORIF LEFT ANKLE DAVID 18 0N CONSERVATIVE PUP STATUS AND INTERVENTIONS AND VISCO MATTRESS LABS: WBC-11.21 HGB_11.6 GLUCOSE-80 SKIN ASSESSMENT COMPLETE PATIENT PRESENTS WITH RIGHT GREAT TOE DIABETIC ULCERATION ORDERS IN PLACE PER DR LINCOLN NON HEALING SURGICAL WOUND LEFT ANKLE WOUND CARE CONSULT IN PLACE FOR DR AHUJA RECOMMENDATIONS: NURSING TO CONTINUE TO MAINTAIN CONSERVATIVE PUP STATUS AND INTERVENTIONS AND VISCO MATTRESS NURSING TO CONTINUE TO ASSIST PATIENT OUT OF BED FOR MEALS AND MUCH TOLERATED NURSING TO CONTINUE TO ASSIST PATIENT NEEDED WITH MEALS AND NUTRITIONAL SUPPLEMENTS TO ENSURE PROPER REQUIREMENTS FOR HEALING NURSING TO CONTINUE TO OFFLOAD FEET AND HEELS NEEDED WITH PILLOW SUSPENSION WHEN IN BED NURSING TO RECONSULT WOUND CARE WITH ANY FUTURE NEEDS OR CONCERNS Addendum: 03/02/20 at 1350 by Jim Rader RN Amended: Links added.
--- NOTE | 2020-03-02 14:55 | NUR ---
consultation note Date of service March 01, 2020 This patient who was a clinic patient of mine who been given my goal vancomycin for osteomyelitis I was contacted by his home health care 5 days ago that he started to have rash and that feeling well at that time I recommend to withhold the vancomycin that was Saturday also recommend to recheck CBC chemistry panel he started to have rash we given Benadryl but he called back that he is not feeling well we recommended steroid but the daughter called me back again that he is feeling weeks I told her to bring him back to the emergency room patient is currently seen in the emergency room he seems comfortable but week he does have diffuse maculopapular rash he has been on vancomycin since Saturday night. The patient foot overall is doing well. The patient who is currently alert oriented. His physical examination he is currently alert oriented vitals stable currently afebrile HEENT normocephalic neck supple chest few crackles bilateral heart S1-S 2 abdomen soft about her present extremities there is no edema at the toes were examined The skin rash and diffuse maculopapular rash. Impression acute kidney injury due to vancomycin and component of dehydration recommend renal evaluation and will consult renal. Osteomyelitis seems to be arrested observed. Diabetes mellitus with neuropathy. At the present time I would recommend to give him Solu-Medrol to 20 every 12 hours IV fluid recheck CBC recheck in panel check urine analysis. Discussed with ER physician please refer to the orders in the chart. impression acute kidney injury due to vancomycin. Skin rash due to vancomycin preoperative dehydration. Osteomyelitis of the foot stable please see orders
--- NOTE | 2020-03-02 14:56 | NUR ---
infectious disease progress note Patient seen and examined today he is currently alert oriented he is feeling better. His physical exam is currently alert oriented vitals stable currently afebrile HEENT is not patient and neck supple chest clear heart S1-S2 abdomen soft person present extremities no edema his rash seems to be better impression acute kidney injury recommend renal evaluation for lumbar dermatitis continues on a Medrol 20 IV every 12 hours with hold of antibiotics from her osteomyelitis treated rested well followed from her diabetes mellitus with neuropathy will follow
[2020-03-02] MEDS: SODIUM CHLORIDE 0.9% 1000ML 1,000 ML IV SCH (16:29)
--- NOTE | 2020-03-02 16:35 | Diagnostic Imaging Report ---
EXAM: US ABDOMEN COMPLETE DATE: 03/02/2020 3:42 PM INDICATION: ^macey COMPARISON: None TECHNIQUE: Transverse and longitudinal bustos scale and color doppler sonographic images of the abdomen were obtained. FINDINGS: LIVER 14.2 cm in the right midclavicular line. Normal echogenicity of the liver with normal contour, no masses. SPLEEN 12.2 cm in maximum diameter. Normal echogenicity, no masses. GALLBLADDER Limited evaluation due to non-NPO status. No gallbladder wall thickening, distension, stone, or pericholecystic fluid. Negative reported sonographic Callejas's sign. BILE DUCTS No intra nor extra-hepatic biliary dilation. Common bile duct measures 0.2cm PANCREAS: Visualized portions are normal. RIGHT KIDNEY: 10.5 cm Echogenicity: Normal Collecting System: No hydronephrosis Stones: None Cyst/Mass: None LEFT KIDNEY: 12.8 cm Echogenicity: Normal Collecting System: No hydronephrosis Stones: None Cyst/Mass: None VESSELS: Aorta: Visualized portions are within normal size limits Inferior Vena Cava: Visualized portions are normal Main Portal Vein: 0.8 cm, normal size with hepatopetal flow. FREE FLUID: None IMPRESSION: Limited evaluation. Overall unremarkable abdominal ultrasound. No biliary dilatation or hydronephrosis is noted. Signed by: Jose Armando Dodson MD on 03/02/2020 4:32 PM
--- NOTE | 2020-03-02 16:37 | Diagnostic Imaging Report ---
Examination: Ultrasound bladder COMPARISON : None Comment: Ultrasound evaluation of the bladder was performed using grayscale and color imaging. Bladder is moderately distended with a volume of 750 mL. Bilateral ureteral jets are visualized. Normal-sized prostate is identified with a volume of 12 cc. IMPRESSION : Distended urinary bladder. Bilateral ureteral jets are visualized. Normal size prostate. Signed by: Jose Armando Dodson MD on 03/02/2020 4:34 PM
--- NOTE | 2020-03-02 18:17 | Consultation ---
DATE OF CONSULTATION: 03/02/2020 HISTORY OF PRESENT ILLNESS: A 70-year-old gentleman, underlying history of diabetes, maintained on metformin at home. Also, history of hypertension, takes aspirin and lisinopril at home along with glipizide for type 2 diabetes. He has had ankle and foot infection for which he was taking vancomycin. He was on this fourth week of twice a day vancomycin when he started developing generalized morbilliform rash, presented to the hospital and vancomycin has been stopped. He is currently awake and alert. Denies any respiratory complaints. Denies nausea, vomiting, or shortness of breath. He claims he has been told he has abnormal kidney function in the past, but never seen a registered dietetic technician. Does not smoke or drink. Quit in 1976 and respectively. Has history of hypertension, diabetes, and hyperlipidemia. No history of PR, angioplasty, or stenting. No history of CVA or malignancy. No history of kidney stone disease or prostate issues. SOCIAL HISTORY: As above. Does not smoke or drink. . FAMILY HISTORY: Significant for diabetes. ALLERGIES: TO VANCOMYCIN. CURRENT MEDICATIONS: The patient is on loratadine 10 mg daily. Lisinopril has been stopped. He is on famotidine, diphenhydramine, collagenase, atorvastatin, which I am going to stop because of elevated LFTs. Pepcid 20 mg p.o. q.8 p.r.n., ondansetron p.r.n., and methylprednisolone 20 mg IV q.12. LABORATORY TESTS: Show white count of 11.2 with a hemoglobin of 11.6, earlier on differential shows eosinophils of 34.5%. Sodium 136, potassium 3.8, bicarb 21, creatinine 2 with a glucose 147. Total bilirubin normal, AST and ALT 90 and 90 respectively, and alkaline phosphatase 68. Total protein 5.8 and globulin 3.1. Urinalysis not done. PHYSICAL EXAMINATION: GENERAL: The patient is awake, alert, and oriented x3, lying supine, in no apparent distress. VITAL SIGNS: Blood pressure 152/60, pulse rate 79, afebrile, and oxygen saturation 99% on room air. HEAD AND NECK: Cornea clear. Oral mucosa moist. Neck veins flat. LUNGS: Relatively clear. No rales or rhonchi. HEART: S1 and S2 audible. ABDOMEN: Otherwise soft and nontender. EXTREMITIES: Lower extremity examination shows no edema. SKIN: Shows morbilliform rash extending from neck down covers his abdomen and upper extremities. IMPRESSION AND PLAN: Vancomycin-induced allergic reaction, eosinophilia, elevated LFTs, etiology unclear. Has longstanding history of diabetes with elevated LFTs. White count is up, predominant eosinophilia with vancomycin has been stopped, as acute kidney injury most likely vancomycin toxicity. LFTs elevated, etiology unclear. I will obtain ultrasound of the liver and kidneys. In the meantime, start IV normal saline. Discontinue glipizide and metformin. The patient asked to hold off on taking metformin at home. Renal workup ordered. Agree with [facility]. I will also send serum uric acid, urine protein/creatinine ratio, and urinalysis. Please see orders. MD ROHIT Cisneros/ANITAL /[id number]
[2020-03-02 18:29] LABS: CLARITY,URINE CLEAR (CLEAR); COLOR,URINE YELLOW (YELLOW); LEUKOCYTE ESTERASE ,URINE NEGATIVE (NEGATIVE); NITRITE,URINE NEGATIVE (NEGATIVE)
[2020-03-02 18:30] LABS: BILIRUBIN,URINE NEGATIVE (NEGATIVE); KETONES,URINE NEGATIVE (NEGATIVE); PROTEIN,URINE DIPSTICK TRACE (NEGATIVE); URINE UROBILINOGEN 1 mg/dL (0.2 - 1)
[2020-03-02 18:36] LABS: BACTERIA,URINE RARE /HPF; EPITHELIAL CELLS,URINE FEW /LPF; RBC,URINE 0-5 /HPF (0-5); WBC,URINE (MAN) 0-5 /HPF (0-5)
--- NOTE | 2020-03-02 18:40 | NUR ---
Bladder ultrasound results demonstrates 750ml. Patient states "I did not void prior to ultrasound. I voided after she had finished doing ultrasound." Bladder scan done and 520ml noted. Instructed patient to void. Post void bladder scan 350ml noted. Notified of assessment.
--- NOTE | 2020-03-02 19:25 | NUR ---
Report given to oncoming nurse of patient's status. Aware of Vines catheter placement orders. Awaiting for coude catheter to be brought to unit. Resting in bed. AAOX4 to time, person, place, situation. Respirations even and unlabored. Side rails upx2, call light within reach.
--- NOTE | 2020-03-02 20:00 | NUR ---
Received the patient in report.aaox3.no resp.distress.no pain voiced.16F coude morales catheter inserted in a aseptic technique with quality control auditor another Rn.clear urine 250 ml drained.pt tolerated well.call light within reach.bed locked and in lowest position.instructed to call for assistance as needed.
[2020-03-02] MEDS ORDERED: COLLAGENASE 5 GM TUBE TP SCH (21:00)
[2020-03-02] MEDS ORDERED: ATORVASTATIN 40 MG TAB PO SCH (21:00)
--- NOTE | 2020-03-02 21:00 | NUR ---
Right great toe dressing changed.pt.tolerated well.
[2020-03-02] MEDS: TAMSULOSIN HCL 0.4 MG CAP PO SCH (21:13)
[2020-03-02 23:54] LABS: CREATININE,URINE RANDOM 45.24 mg/dL (63-166); TOTAL PROTEIN, URINE 15.7 mg/dL (1-14)
[2020-03-03] MEDS: DIPHENHYDRAMINE HCL 25 MG CAP PO PRN (00:11)
[2020-03-03 01:22] VITALS: BP 167/87
[2020-03-03] MEDS: SODIUM CHLORIDE 0.9% 1000ML 1,000 ML IV SCH (02:56)
[2020-03-03 04:44] VITALS: BP 164/84
[2020-03-03 05:43] LABS: BASOPHILS % 0.3 % (0.0-1.0); EOSINOPHILS # (AUTO) 0.1 (0.0-0.4); EOSINOPHILS % 1.6 % (0.0-6.0); HEMATOCRIT 33.7 % (38.2-49.6); HEMOGLOBIN 11.3 g/dL (14.0-18.0); LYMPHOCYTES # (AUTO) 1.1 (1.0-3.2); LYMPHOCYTES % 15.8 % (18.0-39.1); MEAN CORPUSCULAR HGB CONC 33.5 g/dL (31-35); MEAN CORPUSCULAR VOLUME 92.6 fL (81-99); MONOCYTES # (AUTO) 0.2 (0.2-0.8); MONOCYTES % 2.3 % (4.4-11.3); NEUTROPHILS # (AUTO) 5.5 (2.1-6.9); NEUTROPHILS % 79.6 % (38.7-80.0); PLATELET COUNT 142 x10e3/uL (140-360); RED BLOOD COUNT 3.64 x10e6/uL (4.3-5.7); RED CELL DISTRIBUTION WIDTH 14.3 % (11.7-14.4)
[2020-03-03 06:04] LABS: ALBUMIN 2.6 g/dL (3.5-5.0); ALBUMIN/GLOBULIN RATIO 0.7 (0.8-2.0); ANION GAP 16.3 mmol/L (8-16); CALCIUM 7.8 mg/dL (8.4-10.2); CREATININE, SERUM 1.67 mg/dL (0.72-1.25); POTASSIUM 4.3 mmol/L (3.5-5.1)
--- NOTE | 2020-03-03 07:00 | NUR ---
Bed side shift report given to on coming Rn.stable condition.
[2020-03-03 08:00] VITALS: BP 163/85
[2020-03-03 08:20] VITALS: BP 163/85
[2020-03-03] MEDS: FAMOTIDINE 20 MG TAB PO SCH ×2 (08:53→16:20)
[2020-03-03] MEDS: METHYLPREDNISOLONE SOD SUCC 40 MG/ML VIAL 1ML IV SCH (08:53)
[2020-03-03] MEDS: LORATADINE 10 MG TAB PO SCH (08:53)
[2020-03-03] MEDS: INSULIN LISPRO 100 UNIT/1 ML 3ML VIAL SQ SCH ×3 (08:54→16:28)
[2020-03-03] MEDS ORDERED: MUPIROCIN 2% OINT 22 GM TUBE TOP SCH ×2 (09:00→09:30)
[2020-03-03] MEDS ORDERED: NIFEDIPINE CR 30 MG TAB PO SCH (09:00)
[2020-03-03] MEDS ORDERED: LISINOPRIL 10 MG TAB PO SCH (09:00)
--- NOTE | 2020-03-03 09:21 | Progress Note ---
DATE: 03/03/2020 SUBJECTIVE: The patient is doing better. Decreased redness around his body with minimal itching. Denies any history of fever, chills, nausea, or vomiting. OBJECTIVE: VITAL SIGNS: Afebrile, pulse rate 79, respirations 20, blood pressure 164/84, O2 saturation 95%. EXTREMITIES: Ulceration to the right great toe, improving. Granulation tissue noted. No bone or tendon exposed, approximately 1.5 to 2 cm in diameter. LABORATORY DATA: Labs show white blood cell count dropping to 6.95. ASSESSMENT: Grade 2 ulcer, cellulitis, peripheral neuropathy. PLAN: Continue local wound care. Continue offloading. We will continue to follow. MAEGAN vOerton/KAREN /[id number]
[2020-03-03 12:00] VITALS: BP 165/88
[2020-03-03] MEDS ORDERED: SODIUM CHLORIDE 0.9% 1000ML 1,000 ML IV SCH (13:00)
--- NOTE | 2020-03-03 15:55 | NUR ---
Per Dr.Tran morales to be discontinued and dose of Flomax to be administered now (planning d/c today)
--- NOTE | 2020-03-03 16:00 | NUR ---
Vines discontinued as ordered. Tolerated well. Patient due to void. Will continue to monitor.
[2020-03-03 16:11] VITALS: BP 157/80
[2020-03-03] MEDS: TAMSULOSIN HCL 0.4 MG CAP PO SCH (16:20)
--- NOTE | 2020-03-03 18:20 | Progress Note ---
DATE: SUBJECTIVE: Mr. Heart is feeling better. REVIEW OF SYSTEMS: His foot is better. His rash on the skin is also improving. PHYSICAL EXAMINATION: GENERAL: He is currently alert, oriented. VITAL SIGNS: Stable, currently afebrile. HEENT: Normocephalic. Not icteric. NECK: Supple. CHEST: Crackles. HEART: S1, S2. ABDOMEN: Soft. SKIN: There is diffuse erythema and maculopapular rash. IMPRESSION: 1. Osteomyelitis of the foot, seems to be better. 2. Acute kidney injury, also improving. The patient could be changed to oral doxycycline 100 mg p.o. b.i.d. Diabetic control. Follow up as an outpatient. Devin Chapa MD ZS/MODL /[id number]
[2020-03-03] MEDS ORDERED: nifedipine CR PO (18:57)
[2020-03-03] MEDS ORDERED: atarax PO (18:58)
[2020-03-03] MEDS ORDERED: CLARITIN10 MG PO (18:58)
[2020-03-03] MEDS ORDERED: DOXYCYCLINE HY100 MG PO (18:58)
[2020-03-03] MEDS ORDERED: FLOMAX0.4 MG PO (18:59)
--- NOTE | 2020-03-03 19:00 | NUR ---
Received the patient in report.sitting in the bed. no pain voiced. stable condition.
--- NOTE | 2020-03-03 19:35 | NUR ---
Patient voided 400ml. Post void bladder scan done. 105ml noted. Dr. Arndt aware. Orders for discharge received.
--- NOTE | 2020-03-03 19:40 | NUR ---
Report given to oncoming nurse of patient's status. No s/s of acute distress noted. Side rails upx2, call light within reach.
--- NOTE | 2020-03-03 19:45 | NUR ---
Courtesy call placed to to notify of discharge.
--- NOTE | 2020-03-03 20:45 | NUR ---
V/s stable.iv picc line removed.tip intact.pressure dressing applied.discharge information given.verbalized understanding.pt denied further needs.pt discharged home safely with family.escorted via wheel chair to the private auto at the front enterance.
== END 2020-03-03 20:45 | disposition home or self-care (01) ==
LOC: ER 14:20 → ERHOLD 17:27 → MED/SURG2 20:52
PROVIDERS: ADMIT Internal Medicine; ATTEND Internal Medicine
DX: R21 Rash and other nonspecific skin eruption (principal); T36.8X5A Adverse effect of other systemic antibiotics, initial encounter; E11.22 Type 2 diabetes mellitus with diabetic chronic kidney disease; I12.9 Hypertensive chronic kidney disease with stage 1 through stage 4 chronic kidney disease, or unspecified chronic kidney disease; N18.2 Chronic kidney disease, stage 2 (mild); N17.9 Acute kidney failure, unspecified; E78.00 Pure hypercholesterolemia, unspecified; Z83.3 Family history of diabetes mellitus; L03.115 Cellulitis of right lower limb; E11.42 Type 2 diabetes mellitus with diabetic polyneuropathy; L97.512 Non-pressure chronic ulcer of other part of right foot with fat layer exposed; E86.0 Dehydration; E11.69 Type 2 diabetes mellitus with other specified complication; M86.671 Other chronic osteomyelitis, right ankle and foot; Z79.82 Long term (current) use of aspirin; Z79.84 Long term (current) use of oral hypoglycemic drugs
CPT/HCPCS: 36415 ×3; 76700; 76857; 80048; 80053 ×2; 81001; 82570; 82948 ×3; 84156; 84550; 85007; 85025 ×2; 85027; 99284; G0378 ×3; J2920 ×2; J7030 ×2; U0002